=== PATIENT | female | born 1970 | race Asian ===

== ENCOUNTER 2020-07-09 09:24 | Emergency (ER) | payer MEDICARE, OTHER, SELFPAY ==
[2020-07-09 09:46] VITALS: BP 153/85; PULSE 68; RESP 18; TEMP 36; O2SAT 100; BMI 23.8
[2020-07-09] MEDS: Fluorescein Sodium STRIP 1 STRIP EYE-BOTH (10:12)
[2020-07-09] MEDS: Tetracaine HCl/PF 0.5% Oph Sol 4 ML DROPS 3 DROP EYE-LEFT (10:12)
--- NOTE | 2020-07-09 10:19 | ED_ITS ---
HPI - Eye Problem General Chief complaint: Eye Problems <NENA Owusu - Last Filed: 07/09/20 10:32> Stated complaint: FB in eye <NENA Owusu Last Filed: 07/09/20 10:32> Time Seen by Provider: 07/09/20 09:42 <NENA Owusu Last Filed: 07/09/20 10:32> Source: patient <NENA Owusu Last Filed: 07/09/20 10:32> Mode of arrival: ambulatory <NENA Owusu Last Filed: 07/09/20 10:32> Limitations: no limitations <NENA Owusu Last Filed: 07/09/20 10:32> History of Present Illness HPI Narrative: 49 y/o female presenting with right eye watering, pain and irritation that started yesterday when she was outside she something blew into her eye. She had immediate discomfort and watering. She tried flushing her eye last night but has continued discomfort. She does not wear contact or lenses. She denies vision c hanges. <NENA Owusu - Last Filed: 07/09/20 10:32> MD chief complaint: eye pain, eye redness and foreign body <NENA Owusu - Last Filed: 07/09/20 10:32> Onset (ago): day(s) <NENA Owusu - Last Filed: 07/09/20 10:32> Onset description: sudden <NENA Owusu Last Filed: 07/09/20 10:32> Duration: constant <NENA Owusu Last Filed: 07/09/20 10:32> Location: right eye <NENA Owusu Last Filed: 07/09/20 10:32> Eye Symptoms: redness, pain and foreign body sensation <NENA Owusu Last Filed: 07/09/20 10:32> Place: street/outdoors <NENA Owusu Last Filed: 07/09/20 10:32> Mechanism: none <NENA Owusu Last Filed: 07/09/20 10:32> Severity: moderate <NENA Owusu - Last Filed: 07/09/20 10:32> If Pain, Quality: aching <NENA Owusu - Last Filed: 07/09/20 10:32> Associated symptoms: none <NENA Owusu - Last Filed: 07/09/20 10:32> Treatments Prior to Arrival: irrigated eye <NENA Owusu - Last Filed: 07/09/20 10:32> Related Data Patient tetanus UTD: Yes <NENA Owusu - Last Filed: 07/09/20 10:32> Home medications: Previous Rx's Medication Instructions Recorded gentamicin 1 drp OPHTHALMIC-RIGHT Q4H #5 ml 07/09/20 <NENA Owusu - Last Filed: 07/09/20 10:32> Allergies/adverse reactions: Allergies Allergy/AdvReac Type Severity Reaction Status Date / Time No Known Allergies Allergy Verified 07/09/20 09:50 <NENA Owusu - Last Filed: 07/09/20 10:32> Review of Systems Review of Systems: Constitutional: No Fever, No Chills ENT/Mouth: No sore throat, No Rhinorrhea, No Swallowing Difficulty Eyes: + Eye Pain, No Swelling, + Redness Skin: No Skin Lesions, No rash Neuro: No Dizziness, No Headache Heme/Lymph: No Bruising <NENA Owusu - Last Filed: 07/09/20 10:32> [facility] Past Medical History Attestation statement: The following information was validated with the patient. <NENA Owusu - Last Filed: 07/09/20 10:32> Medical History: Medical History Arthritis <NENA Owusu - Last Filed: 07/09/20 10:32> Surgical History: Surgical History (Updated 07/09/20 @ 09:49 by Naz Thomas) H/O neck surgery <NENA Owusu - Last Filed: 07/09/20 10:32> Social History Social History: Social History Advance Directives: No Advance Directives Information Provided: No <NENA Owusu - Last Filed: 07/09/20 10:32> Physical Exam Vital Signs: Vital Signs: Last Vital Signs Temp 96.8 F 07/09/20 09:46 Pulse 68 07/09/20 09:46 Resp 18 07/09/20 09:46 BP 153/85 H 07/09/20 09:46 Pulse Ox 100 07/09/20 09:46 Body Mass Index 23.8 <NENA Owusu Last Filed: 07/09/20 10:32> Vital Signs: Last Vital Signs Temp 96.8 F 07/09/20 09:46 Pulse 68 07/09/20 09:46 Resp 18 07/09/20 09:46 BP 153/85 H 07/09/20 09:46 Pulse Ox 100 07/09/20 09:46 Body Mass Index 23.8 <Troy Gillespie MD - Last Filed: 07/23/20 14:30> Const: General: cooperative, healthy appearing and no acute distress <NENA Owusu Last Filed: 07/09/20 10:32> Nutritional Appearance: average body habitus <NENA Owusu - Last Filed: 07/09/20 10:32> Limitations: no limitations <NENA Owusu Last Filed: 07/09/20 10:32> HENMT: Head: Yes normal to inspection, Yes normocephalic and Yes atraumatic <NENA Owusu Last Filed: 07/09/20 10:32> Ears: hearing grossly normal bilaterally and external ears normal <NENA Owusu Last Filed: 07/09/20 10:32> General nose exam: Normal external nose present <NENA Owusu Last Filed: 07/09/20 10:32> Face and sinus: Yes normal facial exam <NENA Owusu Last Filed: 07/09/20 10:32> Eyes: Periorbital: periorbital findings normal <NENA Owusu Last Filed: 07/09/20 10:32> Eyelids: Yes eyelids normal <NENA Owusu Last Filed: 07/09/20 10:32> Conjunctivae: conjunctivae normal and conjunctival abnormal <NENA Owusu Last Filed: 07/09/20 10:32> Sclerae: scleral abnormal right scleral injection <NENA Owusu Last Filed: 07/09/20 10:32> Corneas: corneas abnormal on the right fluorescein used and abrasion linear and at the following clock position (9 o'clock) and fluorescein used <NENA Owusu - Last Filed: 07/09/20 10:32> Pupils: Equal, round and reactive pupils present <NENA Owusu Last Filed: 07/09/20 10:32> EOM: EOMs intact bilaterally <NENA Owusu Last Filed: 07/09/20 10:32> Neck: Neck: Yes normal visual inspection <NENA Owusu Last Filed: 07/09/20 10:32> Chest: Chest palpation & inspection: normal inspection of the chest <NENA Owusu Last Filed: 07/09/20 10:32> Resp: Effort & Inspection: normal respiratory effort and able to speak in complete sentences <NENA Owusu Last Filed: 07/09/20 10:32> Skin: General skin exam: no rashes or lesions noted <NENA Owusu Last Filed: 07/09/20 10:32> Neuro: General: gait normal and moves all extremities <NENA Owusu Last Filed: 07/09/20 10:32> Cranial nerves: Yes CN's II-XII intact bilaterally and Yes Equal, round and reactive pupils present <NENA Owusu Last Filed: 07/09/20 10:32> Extrem: General: Yes normal to inspection <NENA Owusu Last Filed: 07/09/20 10:32> Psych: Appearance: grossly normal and well kempt <NENA Owusu Last Filed: 07/09/20 10:32> Mental Status: mental status grossly normal <NENA Owusu Last Filed: 07/09/20 10:32> Course Course Course Narrative: 49 y/o female presenting with eye pain and possible foriegn body. Examination reveals no foreign body but there is a small corneal abrasion at the 9 o'clock position. She has no vision changes. She feels significantly better after tetracaine and irrigation. Will prescribe topical antibiotic eye drops and have her follow up with optho. All questions were answered and patient is stable for discharge. <NENA Owusu - Last Filed: 07/09/20 10:32> I have reviewed the chart <Troy Gillespie MD - Last Filed: 07/23/20 14:30> MDM - Eye Problem Differential Diagnosis Differential diagnosis: Likely corneal abrasion, conjunctivitis, acute iritis, hyphema, periorbital cellulitis, subconjunctival hemorrhage and corneal ulcer <NENA Owusu - Last Filed: 07/09/20 10:32> Critical Care Time Critical Care Time Critical Care Time: No <NENA Owusu - Last Filed: 07/09/20 10:32> Discharge Plan Discharge Clinical Impression: Corneal abrasion <NENA Owusu Last Filed: 07/09/20 10:32> Patient Disposition: Home, Self-Care <NENA Owusu - Last Filed: 07/09/20 10:32> Instructions: Corneal Abrasion (ED) <NENA Owusu - Last Filed: 07/09/20 10:32> Additional Instructions: Use the prescribed eye drops as directed for 1 week. Take Tylenol and/or Motrin as needed for discomfort. Follow up with the eye doctor if no improvement in 48 hours. If you have worsening pain or develop vision changes or any other concerning symptom come back to the ER for further evaluation. <NENA Owusu - Last Filed: 07/09/20 10:32> Prescriptions: New gentamicin 0.3 % drops 1 drp ophthalmic-Right Q4H Qty: 5 RF: 0 <NENA Owusu - Last Filed: 07/09/20 10:32> Referrals: Solomon Toscano [Physician] - 2 days <NENA Owusu - Last Filed: 07/09/20 10:32> Interventions: ED Discharge Assessment Last Done: 07/09/20 10:44 <NENA Owusu Last Filed: 07/09/20 10:32> Discharge Date/Time: 07/09/20 10:46 <NENA Owusu - Last Filed: 07/09/20 10:32>
== END 2020-07-09 10:46 | disposition home or self-care (01) ==
PROVIDERS: Emergency Provider Emergency Medicine; PCP Internal Medicine
DX: S05.01XA Injury of conjunctiva and corneal abrasion without foreign body, right eye, initial encounter (principal); X58.XXXA Exposure to other specified factors, initial encounter; Y93.01 Activity, walking, marching and hiking; Y92.480 Sidewalk as the place of occurrence of the external cause; Y99.9 Unspecified external cause status
CPT/HCPCS: 99283

== ENCOUNTER 2021-04-13 07:38 | Emergency (ER) | payer OTHER, MEDICARE, SELFPAY ==
[2021-04-13 08:06] VITALS: BP 142/92; PULSE 74; RESP 18; TEMP 36.1; O2SAT 99; BMI 23.9
[2021-04-13 08:26] LABS: COVID-19 Test Positive (Negative)
--- NOTE | 2021-04-13 09:37 | ED.URI ---
HPI - URI/Sore Throat General Chief Complaint: Upper Respiratory Symptoms Stated Complaint: Cough Time Seen by Provider: 04/13/21 09:12 Source: patient Mode of arrival: ambulatory Limitations: no limitations History of Present Illness HPI Narrative: 50-year-old female reports that she is vaccinated with the COVID vaccine just received her booster 5 days ago presenting to the ED with COVID like symptoms which include resolved fever, body aches, sore throat, nausea and vomiting for the past 5 days. Reports that her granddaughter tested positive a few days ago. Denies recent travel or any other sick contacts. Reports that she is able to still drink water and fluids she is mainly vomiting solids. She denies any other symptoms complaints or concerns at this time. MD elicited complaint: fever, cough and sore throat Onset (ago): day(s) (5) Consistency: constant and progressively worsening Severity: mild Description of mucous: clear Able to tolerate fluids by mouth: Yes Exacerbating factors: swallowing Relieving factors: nothing Context: sick contacts (Granddaughter tested positive for COVID a few days ago) Associated symptoms: fever, chills, myalgias, sore throat, cough, nausea, vomiting and other Treatments prior to arrival: none Related Data Previous Rx's Medication Instructions Recorded gentamicin 0.3 % eye drops 1 drp OPHTHALMIC-RIGHT Q4H #5 ml 07/09/20 acetaminophen 500 mg tablet 1,000 mg PO QID PRN #14 tab 04/13/21 (Tylenol Extra Strength) azithromycin 250 mg tablet See Rx Instructions .ROUTE 04/13/21 .COMPLEX #6 tab codeine 10 mg-guaifenesin 100 mg/5 5 ml PO Q6H PRN #120 ml 04/13/21 mL oral liquid (Guaifenesin AC) ibuprofen 800 mg tablet 800 mg PO Q8H PRN #14 tab 04/13/21 ondansetron 4 mg disintegrating 4 mg PO Q8H PRN #14 tab 04/13/21 tablet Allergies Allergy/AdvReac Type Severity Reaction Status Date / Time No Known Allergies Allergy Verified 07/09/20 09:50 Review of Systems Review of Systems: Constitutional : Positive fever/chills/fatigue/malaise, No Weight loss, No Night Sweats ENT/Mouth : Positive sore throat, No Hearing loss, No Ear Pain, No Nasal Congestion, No Sinus Pain, No Hoarseness No Rhinorrhea, No Swallowing Difficulty Eyes: No Eye Pain, No Swelling, No Redness, No Foreign Body, No Discharge, No Vision Changes Cardiovascular : No Chest Pain, No SOB, No Dyspnea on Exertion, No Orthopnea, No Edema, No Palpitations Respiratory : Positive dry cough, No Sputum, No Wheezing, No Smoke Exposure, No Dyspnea Gastrointestinal : Positive nausea and vomiting, No Diarrhea, No Constipation, No abdominal Pain, No Hematochezia, No Melena Genitourinary : no irregular bleeding, No Dysuria, No Urinary Frequency, No Hematuria, No Urinary Incontinence, No Urgency, No Flank Pain, No Urinary Flow Changes, No Hesitancy Musculoskeletal : No joint pain, No Myalgias, No Joint Swelling Skin : No Skin Lesions, No rash Neuro : No Weakness, No Numbness, No Paresthesias, No Loss of Consciousness, No Dizziness, No Headache Psych : No Anxiety/Panic, No Depression, No SI/HI/AH/VH, No Social Issues, Heme/Lymph: No Bruising, No Bleeding,No Lymphadenopathy Endocrine : No Polyuria, No Polydipsia, No Temperature Intolerance Yes all other systems are reviewed and are negative [facility] Past Medical History Attestation statement: The following information was validated with the patient. Medical History Arthritis Surgical History H/O neck surgery Social History Social History Advance Directives: No Advance Directives Information Provided: Yes Patient : No Physical Exam Vital Signs: Vital Signs: Last Vital Signs Temp 97.0 F 04/13/21 08:06 Pulse 74 04/13/21 08:06 Resp 18 04/13/21 08:06 BP 142/92 H 04/13/21 08:06 Pulse Ox 99 04/13/21 08:06 BMI result Body Mass Index 23.9 vital signs have been reviewed as normal and appeared to be correct. Blood pressure normal. Heart rate normal. Respiration rate normal. Temperature normal. Oxygen saturation normal. Appearance: Alert. Oriented X3. No acute distress. Head: Normal external exam. Normocephalic. Atraumatic. Eyes: PERRLA. EOMI. Conjunctiva and sclera normal. Eyelids normal. ENT: EAC normal. TM's Normal. Pharynx normal. Uvula midline. Moist mucous membranes. No trismus noted. No drooling noted. No muffled voice noted. Neck: Normal inspection. Neck supple. FROM. No adenopathy. Thyroid Normal. No meningeal signs. No neck mass noted. CVS: Normal heart rate and rhythm. Heart sound normal. Pulses normal throughout. No murmurs/rales/gallops. Respiratory: No respiratory distress. Painless inspiration. Breath sounds normal. No wheezes/rales/rhonchi noted. Chest nontender. No accessory muscle usage noted or decreased air movement noted. Abdomen: Soft and nontender. Bowel sounds normal in all 4 quadrants. No distention noted. No organomegaly noted. No visible injury noted. Back: No CVA tenderness. Full range of motion noted. No rashes/lesion/induration/fluctuance or signs of infection noted. Skin: Skin warm and dry. Normal skin color. Normal skin turgor. No rashes/lesions/lacerations noted. Extremities: No lower extremity edema. Extremities exhibit normal range of motion. Extremities nontender. Neuro: Oriented X 3. No motor deficit. No sensory deficit. Reflexes normal. Normal steady gait. No focal neuro deficits noted. Vascular: + radial pulses/+ 2 distal pedal pulses/+2 dorsalis pedis b/l. Normal cap refill. No cyanosis noted to upper extremity nails and lower extremity toes nails. Course Course Course Narrative: Patient positive for COVID. Vital signs remained stable within normal limits. Lungs clear to auscultation. CV RRR. Abdomen is soft nontender. Will explain that he needs to follow CDC guidelines for quarantine/restrictions. Insert return if any new or worsening symptoms follow-up with primary care provider. Patient understands agrees this plan. MDM - URI/Sore Throat Medical Records Attestation: I reviewed the patient's medical records. Lab Data Attestation: I reviewed the patient's lab results. Labs: Lab Results 04/13/21 Range/Units 08:10 COVID-19 ([facility]) Positive A (Negative) COVID-19 Clin Com See Note Discharge Plan Discharge Clinical Impression: COVID-19 Patient Disposition: Home, Self-Care Instructions: COVID-19 (Coronavirus Disease 2019) (ED) Additional Instructions: Please follow CDC guidelines for COVID 19 restrictions/quarantine Prescriptions: New azithromycin 250 mg tablet See Rx Instructions .ROUTE .COMPLEX Qty: 6 RF: 0 ibuprofen 800 mg tablet 800 mg PO Q8H PRN (Reason: pain) Qty: 14 RF: 0 acetaminophen [Tylenol Extra Strength] 500 mg tablet 1,000 mg PO QID PRN (Reason: fever or pain) Qty: 14 RF: 0 codeine-guaifenesin [Guaifenesin AC] 10-100 mg/5 mL liquid 5 ml PO Q6H PRN (Reason: cold symptoms) Qty: 120 RF: 0 ondansetron 4 mg tablet,disintegrating 4 mg PO Q8H PRN (Reason: nausea and vomiting) Qty: 14 RF: 0 No Action gentamicin 0.3 % drops 1 drp ophthalmic-Right Q4H Qty: 5 RF: 0 Referrals: Lien Hess MD [Primary Care Provider] - 2 days Stand Alone Forms: Work/School Release
== END 2021-04-13 09:57 | disposition home or self-care (01) ==
PROVIDERS: Emergency Provider Internal Medicine; PCP Internal Medicine
DX: U07.1 COVID-19 (principal)
CPT/HCPCS: 87635; 99283

== ENCOUNTER 2023-08-12 16:59 | Emergency (ER) | payer MEDICARE, MEDICAID, SELFPAY ==
--- NOTE | 2023-08-12 | ECG_ITS ---
Test Reason : CHEST PAIN Blood Pressure : / mmHG Vent. Rate : 057 BPM Atrial Rate : 057 BPM P-R Int : 120 ms QRS Dur : 090 ms QT Int : 430 ms P-R-T Axes : 059 049 033 degrees QTc Int : 418 ms Sinus bradycardia with sinus arrhythmia Otherwise normal ECG When compared with ECG of 26-JUL-2019 05:38, Non-specific change in ST segment in Lateral leads T wave inversion less evident in Inferior leads T wave inversion no longer evident in Anterolateral leads Referred By: Generic ED Physician Electronically Signed By:Roc Escoto
--- NOTE | ~2023-08-12 | XR_ITS ---
EXAMINATION: XR CHEST CLINICAL INFORMATION: Chest pain. COMPARISON: Chest radiograph 07/26/2019. TECHNIQUE: 2 views of the chest were obtained. FINDINGS: Stable cardiomediastinal silhouette. No focal airspace opacities, pleural effusion or pneumothorax. No evidence of pulmonary edema. Thoracic spondylosis. No acute osseous findings. Partially seen cervical spinal hardware. XR/XR chest 2V IMPRESSION: No acute cardiopulmonary findings.
--- NOTE | ~2023-08-12 | XR_ITS ---
EXAMINATION: PELVIS AND LEFT HIP, LEFT KNEE CLINICAL INFORMATION: Pain COMPARISON: CT abdomen pelvis 07/12/2019 TECHNIQUE: Single view pelvis with 2 additional views left hip, 4 views left knee FINDINGS: The pelvis and hips appear normal. No fractures or bony destructive lesions. No significant bone, joint or soft tissue abnormality is seen involving the knee aside from the presence of a possible tiny joint effusion. XR/XR hip LT w PEL1V IMPRESSION: No acute abnormality.
--- NOTE | ~2023-08-12 | XR_ITS ---
EXAMINATION: PELVIS AND LEFT HIP, LEFT KNEE CLINICAL INFORMATION: Pain COMPARISON: CT abdomen pelvis 07/12/2019 TECHNIQUE: Single view pelvis with 2 additional views left hip, 4 views left knee FINDINGS: The pelvis and hips appear normal. No fractures or bony destructive lesions. No significant bone, joint or soft tissue abnormality is seen involving the knee aside from the presence of a possible tiny joint effusion. XR/XR knee LT 3V IMPRESSION: No acute abnormality.
[2023-08-12 17:05] VITALS: BP 170/90; PULSE 60; O2SAT 100
[2023-08-12 17:18] LABS: MANUAL DIFF FLAG NO
[2023-08-12 17:22] LABS: Basophils Percent Auto 0.6 % (0-2); Eosinophils Absolute Auto 0.1 X10*3/uL (0.0-0.4); Eosinophils Percent Auto 1.7 % (0-4); Hematocrit 40.9 % (37.0-47.0); Hemoglobin 13.7 g/dl (12.0-16.0); Imm Gran Abs Auto 0.01 X10*3/uL (0.00-0.03); Imm Gran Pct Auto 0.2 % (0.0-0.4); Lymphocytes Absolute Auto 2.6 X10*3/uL (1.2-4.9); Lymphocytes Percent Auto 49.8 % (20-40); Mean Corpuscular HGB Conc 33.5 g/dl (31.0-35.0); Mean Corpuscular Hemoglobin 26.7 pg (27.0-33.0); Mean Corpuscular Volume 79.6 fL (80.0-98.0); Monocytes Absolute Auto 0.5 X10*3/uL (0.1-1.2); Monocytes Percent Auto 9.2 % (2-11); Neutrophils Percent Auto 38.5 % (45-73); Platelet Count 247 X10*3/uL (160-400); Red Blood Count 5.14 X10*6/uL (4.20-5.50); Red Cell Distribution Width 14.4 % (11.0-16.0); White Blood Count 5.2 X10*3/uL (4.8-10.8)
[2023-08-12 17:29] VITALS: BP 169/76; PULSE 59; RESP 20; TEMP 36.4; O2SAT 98; BMI 24.5
[2023-08-12 17:29] LABS: INTERNATIONAL NORM RATIO 0.9 (0.9-1.1); Prothrombin Time 10.9 SEC (11.1-13.3)
--- NOTE | 2023-08-12 17:35 | ED_ITS ---
HPI - Chest Pain General Chief Complaint: Chest Pain Stated Complaint: CHEST PAIN Time Seen by Provider: 08/12/23 21:10 Source: patient Mode of arrival: ambulatory History of Present Illness HPI narrative: 52-year-old female who has had 2 weeks of left knee pain and left hip pain that started after she was going down some stairs and she states that her knee gave out and that she has had some difficulty with walking, the pain is primarily within the left knee, she went to follow-up at [facility] today and then began developing left-sided chest pain with radiation into the left neck, denies dizziness/fever/chills/shortness of breath and has no past medical history of diabetes or high blood pressure and is not on any prescribed medications. Related Data Previous Rx's ?Medication ?Instructions ?Recorded gentamicin 0.3 % eye drops 1 drp ophthalmic-Right Q4H #5 mL 07/09/20 acetaminophen 500 mg tablet 1,000 mg (2 x 500 mg) PO QID PRN 04/13/21 (Tylenol Extra Strength) fever or pain #14 tabs azithromycin 250 mg tablet See Rx Instructions PO .COMPLEX #6 04/13/21 tabs codeine 10 mg-guaifenesin 100 mg/5 5 ml PO Q6H PRN cold symptoms #120 04/13/21 mL oral liquid (Guaifenesin AC) mL ibuprofen 800 mg tablet 800 mg PO Q8H PRN pain #14 tabs 04/13/21 ondansetron 4 mg disintegrating 4 mg PO Q8H PRN nausea and 04/13/21 tablet vomiting #14 tabs Allergies Allergy/AdvReac Type Severity Reaction Status Date / Time No Known Allergies Allergy Verified 08/12/23 17:32 Review of Systems 2 Review of Systems: Pertinent positives and negatives as stated in HPI [facility] Past Medical History Source: nursing notes reviewed Medical History Arthritis Surgical History H/O neck surgery Social History Social History Advance Directives: No Advance Directives Information Provided: No Do you have a plan to hurt others: No Plan Physical Exam 2 Vital Signs: Vital Signs: Last Vital Signs Temp 97.9 F 05/09/24 01:15 Pulse 55 08/13/23 01:15 Resp 16 08/13/23 01:15 BP 144/87 H 08/13/23 01:15 Pulse Ox 99 08/13/23 01:15 O2 Del Method Room Air 08/13/23 01:15 BMI result Body Mass Index 24.5 VITAL SIGNS: Reviewed. GENERAL: Well developed, well nourished, in no acute distress. HEAD: Normocephalic/atraumatic EYES: PERRLA, EOMI EARS: Ext canals without abnormality NOSE: Nares patent bilateral OROPHARYNX: no oral lesions noted, posterior pharynx clear NECK: Supple, no adenopathy LUNGS: Normal breath sounds. No adventitious sounds or accessory muscle use. SpO2<99> CARDIOVASCULAR: Regular rate and rhythm without noted murmurs ABDOMEN: Soft, non-tender, non-distended with bowel sounds. PELVIS: Stable, tenderness to palpation at the left hip BACK: No midline vertebral tenderness to palpation or step-offs noted. MUSCULOSKELETAL: No tenderness, deformities, or effusions noted on gross inspection. EXTREMITIES: No cyanosis, clubbing or edema. LEFT KNEE: Significant discomfort on manipulation of the patella, no obvious deformity or effusion appreciated, pain also on palpation of popliteal fossa as well as manipulation of the left hip SKIN: Inspection of the skin reveals no rashes NEUROLOGIC: Alert and oriented x 4. Strength and sensation to light touch were grossly intact x 4. Course Course Course Narrative: This is a Rapid Medical Examination (RME) performed by Renee Currie PA-C in triage. Full HPI, ROS, assessment and treatment plan per primary provider in the Main ED. 52 yo female w/ pmhx of MDD here via EMS for eval of substernal chest pain radiating to left chest and left jaw that began prior to arrival in ED. Pain began while she was being evaluated at [facility] for chronic knee pain. EMS was called. Pain is minimal at this time and has almost completely resolved. Denies similar episodes in the past. Denies cough, shortness of breath, nausea vomiting diarrhea, headache, blurry vision. No recent travel or long car rides. Not on AC. No cardiac history. well appearing. not diaphoretic. rr. lungs cta b/l. Plan: labs, trop, ekg, cxr ordered. Medical Decision Making Medical Decision Making [facility] Narrative: 52-year-old female with history and clinical presentation, DDX: Patient has minimal risk factors for large vessel dissection/occlusion, low clinical suspicion for extremity DVT or PE, suspect possible meniscal injury/sciatica, unsure source of chest pain but possibility of musculoskeletal/anxiety I reviewed all investigations and hematologic indices are negative for leukocytosis/anemia/thrombocytopenia. INR is within normal limits. Chemistry indices negative for CUCA or liver enzyme derangements, there is noted trace elevation of sodium, otherwise I sensitivity troponin is undetectable and there are no acute changes on EKG. Chest x-ray negative for infiltrate or venous congestion otherwise my interpretation is in agreement with radiology's impression. X-ray of knee and hip/pelvis negative for evidence of acute fractures or dislocations. Urinalysis is negative for UTI but there is noted hematuria that has increased since urinalysis in 2019. Provided patient with a an Alvaro wrap to the left knee, also discussed with her the fact that she needed to follow-up with urology as well as her primary care doctor for the left flank pain with hematuria. Patient declined translator/interpreter services. Differential Diagnosis Differential Diagnoses: The differential diagnosis associated with the presentation includes Please see the discussion above Admission/Observation Consideration of admission/observation: Escalation of care including admission/observation considered Please see the discussion above Lab Data [facility] Lab Attestation statement: I reviewed the patient's lab results. Please see the discussion above 08/12/23 17:13 08/12/23 17:13 Labs: Lab Results 08/12/23 08/12/23 Range/Units 17:13 22:18 WBC 5.2 (4.8-10.8) X10*3/uL RBC 5.14 (4.20-5.50) X10*6/uL Hgb 13.7 (12.0-16.0) g/dl Hct 40.9 (37.0-47.0) % MCV 79.6 L (80.0-98.0) fL MCH 26.7 L (27.0-33.0) pg MCHC 33.5 (31.0-35.0) g/dl RDW 14.4 (11.0-16.0) % Plt Count 247 (160-400) X10*3/uL MPV 10.0 (9.4-12.3) fL Immature Gran % (Auto) 0.2 (0.0-0.4) % Neut % (Auto) 38.5 L (45-73) % Lymph % (Auto) 49.8 H (20-40) % Davidson % (Auto) 9.2 (2-11) % Eos % (Auto) 1.7 (0-4) % Baso % (Auto) 0.6 (0-2) % Lymph # (Auto) 2.6 (1.2-4.9) X10*3/uL Davidson # (Auto) 0.5 (0.1-1.2) X10*3/uL Eos # (Auto) 0.1 (0.0-0.4) X10*3/uL Baso # (Auto) 0.0 (0.0-0.2) X10*3/uL Abs Immat Gran (auto) 0.01 (0.00-0.03) X10*3/uL Absolute Neuts (auto) 2.0 (2.0-8.3) x10*3/uL Absolute Nucleated RBC 0.000 (0.0-0.012) X10*3/uL Nucleated RBC % (auto) 0.0 (0.0-0.2) /100WBC PT 10.9 L (11.1-13.3) SEC INR 0.9 (0.9-1.1) Sodium 147 H (135-145) mmol/L Potassium 4.2 (3.3-5.1) mmol/L Chloride 108 (96-108) mmol/L Carbon Dioxide 25 (22-29) mmol/L Anion Gap 18 (12-20) BUN 14 (9-16) mg/dL Creatinine 0.73 (0.5-1.4) mg/dL Estim Creat Clear Calc 77.4 Estimated GFR > 60 Random Glucose 101 (60-115) mg/dL Calcium 10.5 H (8.4-10.2) mg/dL Magnesium 2.2 (1.6-2.6) mg/dL Total Bilirubin 0.5 (0.0-1.0) mg/dL AST 27 (5-31) U/L ALT 20 (0-31) U/L Alkaline Phosphatase 63 (39-117) U/L Troponin I High Sens < 2.7 (<3.5-17.0) ng/L Total Protein 7.7 (6.5-8.0) g/dL Albumin 4.6 (3.5-5.0) g/dL Urine Color Yellow Urine Appearance Clear Urine pH 6.5 (5.0-9.0) Ur Specific [place] 1.015 (1.005-1.025) Urine Protein Negative (Neg-Trace) mg/dL Urine Glucose (UA) Negative (Negative) mg/dL Urine Ketones Negative (Negative) mg/dL Urine Blood Small (1+) H (Negative) Urine Nitrite Negative (Negative) Ur Leukocyte Esterase Negative (Negative) Urine RBC 11-20 H (0-2) /HPF Urine WBC 0-5 (0-5) /HPF Ur Squamous Epith Cells 0-2 (0-2) /HPF Urine Bacteria None Seen (None Seen) Hyaline Casts 0-2 (0-2) /LPF Independent Interpretation I performed an independent interpretation of an: EKG Interpretation: Sinus bradycardia, HR-57, no STEMI, AK/QRS/QTC is within normal limits. Radiology Impression Discussion of test interpretation with radiology: I have reviewed the radiologist's reading. Radiologist Impression: Please see the discussion above External Record Review External record reviewed: Outpatient record and Prior outpatient labs Critical Care Time Critical Care Time Critical Care Time: Yes Total Critical Care Time: 30 Attestation: I personally attest to this time spent taking care of the patient. Discharge Plan Discharge Clinical Impression: Knee pain, left, Hematuria, Left flank pain Patient Disposition: Home, Self-Care Instructions: How to Use an Elastic Bandage (ED), Hematuria (ED), Knee Pain (ED), Flank Pain (ED) Additional Instructions: 1. Tylenol 1000 mg, orally, every 6 hours as needed for pain control. Do not exceed 4000 mg within 24 hours. 2. Ibuprofen 400 mg, orally with milk or food, every 6 hours as needed for pain control. 3. Recommend calling Urology office tomorrow morning to set up an appointment for re-evaluation and further outpatient management for the blood in the urine. 4. Please follow-up with your primary care doctor in the next 1-2 days for re- evaluation of your left knee. Return to the ER for any worsening symptoms. Prescriptions: No Action gentamicin 0.3 % drops 1 drp ophthalmic-Right Q4H Qty: 5 0RF azithromycin 250 mg tablet See Rx Instructions .ROUTE .COMPLEX Qty: 6 0RF Rx Instructions: take 500 mg today (day 1), then 250 mg for 4 days (days 2-5) ibuprofen 800 mg tablet 800 mg PO Q8H PRN (Reason: pain) Qty: 14 0RF acetaminophen [Tylenol Extra Strength] 500 mg tablet 1,000 mg PO QID PRN (Reason: fever or pain) Qty: 14 0RF codeine-guaifenesin [Guaifenesin AC] 10-100 mg/5 mL liquid 5 ml PO Q6H PRN (Reason: cold symptoms) Qty: 120 0RF ondansetron 4 mg tablet,disintegrating 4 mg PO Q8H PRN (Reason: nausea and vomiting) Qty: 14 0RF Referrals: León Seo MD [Physician] - Lien Hess MD [Primary Care Provider] - Interventions: ED Discharge Assessment Last Done: 08/13/23 01:15 Discharge Date/Time: 08/13/23 01:24 Print Language: Indonesian
[2023-08-12 17:41] LABS: Alanine Aminotransferase 20 U/L (0-31); Albumin Level 4.6 g/dL (3.5-5.0); Alkaline Phosphatase 63 U/L (39-117); Anion Gap 18 (12-20); Aspartate Amino Transferase 27 U/L (5-31); Bilirubin Total 0.5 mg/dL (0.0-1.0); Blood Urea Nitrogen 14 mg/dL (9-16); Calcium 10.5 mg/dL (8.4-10.2); Carbon Dioxide 25 mmol/L (22-29); Chloride 108 mmol/L (96-108); Creatinine Clr Calc Pharmacy 77.4; Estimated Glomerular Filt Rate > 60; Glucose Random 101 mg/dL (60-115); Magnesium 2.2 mg/dL (1.6-2.6); Potassium 4.2 mmol/L (3.3-5.1); Sodium 147 mmol/L (135-145); Total Protein 7.7 g/dL (6.5-8.0)
[2023-08-12 17:48] LABS: Troponin-I High Sensitivity < 2.7 ng/L (<3.5-17.0)
[2023-08-12 21:37] VITALS: BP 146/96; PULSE 61; RESP 18; TEMP 36.6; O2SAT 99
[2023-08-12 22:26] LABS: Appearance Urine Clear; Color Urine Yellow; Glucose Urine UA Negative (Negative); Leukocyte Esterase Urine Negative (Negative); Nitrite Urine Negative (Negative); PH 6.5 (5.0-9.0); Specific Gravity - Urine 1.015 (1.005-1.025); UMIC TRIGGER UACC YES; Urine Blood Small (1+) (Negative); Urine Ketones Negative (Negative); Urine Protein Negative (Neg-Trace)
[2023-08-12 22:34] LABS: Bacteria Urine None Seen (None Seen); Hyaline Casts Urine 0-2 /LPF (0-2); Squamous Epithelial Cell Urine 0-2 /HPF (0-2); WBC Urine 0-5 /HPF (0-5)
[2023-08-13 00:09] VITALS: BP 136/79; PULSE 72; RESP 16; TEMP 36.5; O2SAT 97
[2023-08-13 01:15] VITALS: BP 144/87; PULSE 55; RESP 16; TEMP 36.6; O2SAT 99
== END 2023-08-13 01:24 | disposition home or self-care (01) ==
PROVIDERS: Emergency Provider Student in an Organized Health Care Education/Training Program; PCP Internal Medicine
DX: S29.9XXA Unspecified injury of thorax, initial encounter (principal); R07.89 Other chest pain; M25.562 Pain in left knee; M25.552 Pain in left hip; I49.9 Cardiac arrhythmia, unspecified; R00.1 Bradycardia, unspecified; R10.9 Unspecified abdominal pain; W10.9XXA Fall (on) (from) unspecified stairs and steps, initial encounter; Y93.9 Activity, unspecified; Y92.9 Unspecified place or not applicable; Y99.8 Other external cause status; Z79.899 Other long term (current) drug therapy
CPT/HCPCS: 36415; 71046; 73502; 73562; 80053; 81001; 83735; 84484; 85025; 85610; 93005; 99283; 99285

== ENCOUNTER → 2023-08-12 17:04 | Outpatient (BNV) | payer MEDICARE, MEDICAID, SELFPAY | PROVIDERS: Emergency Provider Student in an Organized Health Care Education/Training Program; PCP Internal Medicine; Visit Provider Internal Medicine Cardiovascular Disease | DX: R07.9 Chest pain, unspecified (principal) | CPT/HCPCS: 93010 ==

== ENCOUNTER 2023-10-05 09:06 | Outpatient (AMB) | payer MEDICARE, MEDICAID, SELFPAY ==
--- NOTE | 2023-10-05 09:08 | MHC.OFFVIS ---
Intake Visit Reasons: Hematuria Intake Note: New Patient presents today for initial visit to establish treatment for : Hematuria Urology Medications: none Allergies to Antibiotic: none Blood Thinner: none Smoker: never [employer] Worker Required: No Accompanied by: Self / Same As Patient Allergies No Known Allergies Allergy (Verified 10/05/23 09:32) Medication List - Last Reconciled 10/05/23 by KAMERON Miller acetaminophen (Tylenol Extra Strength) 1,000 mg (2 x 500 mg) PO QID PRN ibuprofen 800 mg PO Q8H PRN HPI Comments Details: Sameera is a pleasant 52-year-old female patient of Dr. Hess. She has a past medical history arthritis. She presents to the office today as a new patient for microscopic hematuria. She reports following up with her pcp for her annual visit at which time her urine noted microscopic hematuria recommendations were made for urology referral for further assessment evaluation. In discussion with the patient today she reports to be doing and feeling well. She reports noting episodes of urinary frequency with increased p.o. intake otherwise she denies any bothersome urinary issues or concerns. She denies urinary urgency, incontinence, nocturia, hematuria, dysuria, foul smelling urine, changes to urinary stream, flank pain, fever, and or chills. She is happy with her current voiding parameters. She denies any history of nicotine dependence and or workplace chemical exposure. In office urinalysis results reviewed with the patient today trace microscopic hematuria noted. Discussed at length potential causes of microscopic hematuria. I discussed reasons for blood in the urine may include but are not limited to kidney stones, cancer in the urinary tract, kidney stone disease or inflammatory conditions of the urinary tract. I have discussed workup to include cystoscopy evaluation. She otherwise offers no other issues or concerns at this time. [facility] Medical History Arthritis Surgical History H/O neck surgery Review of Systems Const All systems reviewed & are unremarkable except as noted in HPI and below Physical Exam Const General: cooperative, healthy appearing, comfortable, no acute distress, well developed, alert and awake Orientation/consciousness: patient oriented x3 Limitations: no limitations HEENT Head: Yes normal to inspection, Yes normocephalic and Yes atraumatic Ears: hearing grossly normal bilaterally Eyes General: appearance normal, both eyes and all related structures Neck Neck: Yes normal visual inspection and Yes trachea midline Chest Chest palpation & inspection: normal inspection of the chest Resp Effort & Inspection: normal respiratory effort and able to speak in complete sentences Cardio Rate: regular rate GI Inspection: Yes normal to inspection General: Yes no CVA tenderness Back/Spine/Pelvis Back: no CVA tenderness Skin General skin exam: no rashes or lesions noted Neuro General: patient oriented x3 Extrem General: Yes normal to inspection Psych Appearance: grossly normal and well kempt Mental Status: mental status grossly normal Speech and movement: Normal speech and movement present and Clear speech present Affect: normal affect Attitude: cooperative Thought process: Normal thought process present Thought content: Normal thought content present Insight: Fair insight present (Psych) Judgement: Fair judgement present (Psych) Results AMB Urinalysis, Automated UA Leukoctes 0 Deshawn/uL Last Edit by [employer] Adeola on 10/05/23 09:23 UA Nitrite Negative Last Edit by Mahi Mir on 10/05/23 09:23 UA Urobilinogen 0.2 mg/dL Last Edit by Mahi Mir on 10/05/23 09:23 UA Protein 0 mg/dL Last Edit by [employer] Agatado on 10/05/23 09:23 UA pH 6.0 Last Edit by Mahi Mir on 10/05/23 09:23 UA Blood 10 Jaime/uL Last Edit by [employer] Mir on 10/05/23 09:23 UA Specific [place] 1.005 Last Edit by [employer] Adeola on 10/05/23 09:23 UA Ketone Negative Last Edit by [employer] Mir on 10/05/23 09:23 UA Bilirubin 0 mg/dL Last Edit by [employer] Agatado on 10/05/23 09:23 UA Glucose 0 mg/dL Last Edit by [employer] Agat[employer] on 10/05/23 09:23 Results Reviewed Results Reviewed: Laboratory Last Values Urine pH (Auto) 6.0 10/05/23 09:17 Specific [place] (Auto) 1.005 10/05/23 09:17 Urine Protein (Auto) 0 mg/dL 10/05/23 09:17 Glucose (UA)(Auto) 0 mg/dL 10/05/23 09:17 Urine Ketones (Auto) Negative 10/05/23 09:17 Urine Blood (Auto) 10 Jaime/uL 10/05/23 09:17 Urine Nitrite (Auto) Negative 10/05/23 09:17 Urine Bilirubin (Auto) 0 mg/dL 10/05/23 09:17 Urine Urobilinogen (Auto) 0.2 mg/dL 10/05/23 09:17 Leukocyte Esterase (Auto) 0 Deshawn/uL 10/05/23 09:17 Assessment & Plan Assessment & Plan (1) Urinary frequency: Code(s): R35.0 - Frequency of micturition Category: Medical (2) Microscopic hematuria: Code(s): R31.29 - Other microscopic hematuria Category: Medical Plan In office urinalysis results reviewed with the patient today; as noted above; will send for urine cytology. Discussed at length potential causes of microscopic hematuria as well as microscopic hematuria workup; discussed risks and benefits of further microscopic hematuria workup versus surveillance monitoring. Will obtain retroperitoneal ultrasound for further assessment evaluation. Patient does report urinary frequency however does not find this bothersome at this time. Discussed bladder triggers/irritants. Follow-up in 1-3 months with imaging to be completed prior; or sooner with any issues, concerns, and or questions. Orders: Orders AMB Urinalysis Automated Today Z13.9 - Encounter for screening, unspecified Urine Cytology Today R31.9 - Hematuria, unspecified US retroperitoneal comp Today R31.29 - Other microscopic hematuria, R35.0 - Frequency of micturition Medications: Discontinued gentamicin 0.3% Discontinued Reason: Patient no longer taking 1 drp ophthalmic-Right Q4H 5 mL 0RF ondansetron Discontinued Reason: Patient no longer taking 4 mg PO Q8H PRN 14 tabs 0RF nausea and vomiting azithromycin Discontinued Reason: Patient no longer taking take 500 mg today (day 1), then 250 mg for 4 days (days 2-5) 6 tabs 0RF codeine-guaifenesin 10-100 mg/5 mL (Guaifenesin AC) Discontinued Reason: Patient no longer taking 5 mL PO Q6H PRN 120 mL 0RF cold symptoms Patient Instructions: The patient had an opportunity to ask questions regarding the treatment plan. All questions were answered. Physical exam, labs, and imaging were discussed and reviewed in detail. As well as risks, benefits, and discussion of treatment choices. No major barriers to understanding were identified. The patient expressed understanding and agreement with the above treatment plan. The patient was made aware they should contact our office by phone for worsening of their current condition, the appearance of new symptoms, or with any questions or concerns. Compliance is encouraged with any medications and follow up testing that is ordered. It is a privilege to be allowed the opportunity to participate in? your urological care.? Again, if you have any questions or concerns If you have any questions or concerns please do not hesitate to contact me. The office is [phone]. This note is constructed using voice recognition software. While every effort has been made to ensure accuracy ferruler errors may have been included. Yours sincerely, KAMERON Miller Coding Level of Care Code New Pt Level 3 (20327) Diagnoses Urinary frequency R35.0 Microscopic hematuria R31.29
== END 2023-10-05 09:34 | disposition home or self-care (01) ==
PROVIDERS: PCP Internal Medicine; Visit Provider Nurse Practitioner Family
DX: R35.0 Frequency of micturition (principal); R31.29 Other microscopic hematuria; Z13.9 Encounter for screening, unspecified
CPT/HCPCS: 99203

== ENCOUNTER 2023-10-05 09:06 | Outpatient (REF) | payer MEDICARE, MEDICAID, SELFPAY ==
[2023-10-05 17:21] LABS: Urine Cytology See Pathology rpt
== END 2023-10-05 09:07 | disposition home or self-care (01) ==
LOC: HO.LNP 09:06
PROVIDERS: PCP Internal Medicine; Visit Provider Nurse Practitioner Family
DX: R35.0 Frequency of micturition (principal); R31.29 Other microscopic hematuria
CPT/HCPCS: 81003; 88112; 99202

== ENCOUNTER 2023-12-03 09:49 | Outpatient (REF) | payer MEDICARE, MEDICAID, SELFPAY ==
--- NOTE | ~2023-12-03 | US_ITS ---
EXAMINATION: US RETROPERITONEAL COMPLETE (RENAL) CLINICAL INFORMATION: Other microscopic hematuria. COMPARISON: None available. TECHNIQUE: Real-time imaging of the kidneys and bladder. Limited visualization due to bowel gas. FINDINGS: RIGHT KIDNEY: 10.8 x 4.2 x 4.8 cm (SAG x AP x TRV). No hydronephrosis. No renal calculi. Renal cortical thickness is normal. Limited visualization. . LEFT KIDNEY: 10.0 x 5.2 x 4.8 cm (SAG x AP x TRV). No hydronephrosis. No renal calculi. Renal cortical thickness is normal. Limited visualization. . BLADDER: Well-distended. Bilateral ureteral jets are demonstrated. Prevoid bladder volume is 225 mL. Postvoid bladder volume is 10.1 mL. US/US retroperitoneal comp IMPRESSION: 1. No hydronephrosis. No renal calculi. Renal cortical thickness is normal. Limited visualization. 2. Urinary bladder is suboptimally distended, limiting visualization. Electronically signed by: Wandy Smiley MD 12/09/2023 10:42 AM EDT
== END 2023-12-03 09:50 | disposition home or self-care (01) ==
LOC: HO.US 09:49
PROVIDERS: PCP Internal Medicine; Visit Provider Nurse Practitioner Family
DX: R31.29 Other microscopic hematuria (principal); R35.0 Frequency of micturition
CPT/HCPCS: 76770

== ENCOUNTER 2023-12-28 08:34 | Outpatient (REF) | payer MEDICARE, MEDICAID, SELFPAY ==
[2023-12-28 17:09] LABS: Urine Cytology See Pathology rpt
== END 2023-12-28 08:35 | disposition home or self-care (01) ==
LOC: HO.LAB 08:34
PROVIDERS: PCP Internal Medicine; Visit Provider Nurse Practitioner Family
DX: R31.29 Other microscopic hematuria (principal); R35.0 Frequency of micturition
CPT/HCPCS: 81003; 88112; 99212

== ENCOUNTER 2023-12-28 08:34 | Outpatient (AMB) | payer MEDICARE, MEDICAID, SELFPAY ==
--- NOTE | 2023-12-28 08:42 | A.OFFVIS_ITS ---
Intake Visit Reasons: 2m/US(set) Intake Note: Patient presents today for follow up visit on: Hematuria and ultrasound Results Imaging Completed: 12/03/23 Urology Medications: none Allergies to Antibiotic: none Blood Thinner: none Smoker: never Meeting/Event Planner Required: No Accompanied by: Self / Same As Patient Allergies No Known Allergies Allergy (Verified 12/28/23 09:03) Medication List - Last Reconciled 12/28/23 by KAMERON Miller No Known Home Meds HPI Comments Details: Sameera is a pleasant 53-year-old female patient of Dr. Hess. She has a past medical history arthritis. She presents to the office today for follow-up. Of note, patient was seen approximately 2 months ago as a new patient for microscopic hematuria at which time a retroperitoneal ultrasound was ordered for further assessment evaluation and her urine was sent for a cytology. These results were reviewed with the patient today. Bilateral kidneys with no hydronephrosis or renal calculi. The bladder is well distended. Bladder jets are demonstrated. Pre void bladder volume is proximally 230 mL. Postvoid bladder volume is approximately 10 mL. Urine cytology 10/27 Negative for high-grade urothelial carcinoma. In discussion with the patient today she reports to be doing and feeling well. She reports noting episodes of urinary frequency with increased p.o. intake otherwise she denies any bothersome urinary issues or concerns. She denies urinary urgency, incontinence, nocturia, hematuria, dysuria, foul smelling urine, changes to urinary stream, flank pain, fever, and or chills. She is happy with her current voiding parameters. She denies any history of nicotine dependence and or workplace chemical exposure. In office urinalysis results reviewed with the patient today 1+ microscopic hematuria noted. Discussed at length potential causes of microscopic hematuria. We discussed reasons for blood in the urine may include but are not limited to kidney stones, cancer in the urinary tract, kidney stone disease or inflammatory conditions of the urinary tract. I have discussed workup to include cystoscopy evaluation versus surveillance monitoring. Risks and benefits of these interventions were discussed. She otherwise offers no other issues or concerns at this time. [facility] Medical History Arthritis Surgical History H/O neck surgery Review of Systems Const All systems reviewed & are unremarkable except as noted in HPI and below Physical Exam Const General: cooperative, healthy appearing, comfortable, no acute distress, well d eveloped, alert and awake Orientation/consciousness: patient oriented x3 Limitations: no limitations HEENT Head: Yes normal to inspection, Yes normocephalic and Yes atraumatic Ears: hearing grossly normal bilaterally Eyes General: appearance normal, both eyes and all related structures Neck Neck: Yes normal visual inspection and Yes trachea midline Chest Chest palpation & inspection: normal inspection of the chest Resp Effort & Inspection: normal respiratory effort and able to speak in complete sentences Cardio Rate: regular rate GI Inspection: Yes normal to inspection General: Yes no CVA tenderness Back/Spine/Pelvis Back: no CVA tenderness Skin General skin exam: no rashes or lesions noted Neuro General: patient oriented x3 Extrem General: Yes normal to inspection Psych Appearance: grossly normal and well kempt Mental Status: mental status grossly normal Speech and movement: Normal speech and movement present and Clear speech present Affect: normal affect Attitude: cooperative Thought process: Normal thought process present Thought content: Normal thought content present Insight: Fair insight present (Psych) Judgement: Fair judgement present (Psych) Results AMB Urinalysis, Automated UA Leukoctes 0 Deshawn/uL Last Edit by Mahi Mir on 12/28/23 08:57 UA Nitrite Last Edit by Mahi Mir on 12/28/23 08:57 UA Urobilinogen 0.2 mg/dL Last Edit by Mahi Mir on 12/28/23 08:57 UA Protein 0 mg/dL Last Edit by Mahi Mir on 12/28/23 08:57 UA pH 6.0 Last Edit by Mahi Mir on 12/28/23 08:57 UA Blood 25 Jaime/uL Last Edit by Mahi Mir on 12/28/23 08:57 UA Specific [place] 1.010 Last Edit by Mahi Mir on 12/28/23 08:57 UA Ketone Last Edit by Bienvenidostanislavjasen Yungsanty on 12/28/23 08:57 UA Bilirubin 0 mg/dL Last Edit by Bienvenidostanislavjasen Yungsanty on 12/28/23 08:57 UA Glucose 0 mg/dL Last Edit by Bienvenidosebastian Agasanty on 12/28/23 08:57 Results Reviewed Results Reviewed: Laboratory Last Values Urine pH (Auto) 6.0 12/28/23 08:55 Specific [place] (Auto) 1.010 12/28/23 08:55 Urine Protein (Auto) 0 mg/dL 12/28/23 08:55 Glucose (UA)(Auto) 0 mg/dL 12/28/23 08:55 Urine Blood (Auto) 25 Jaime/uL 12/28/23 08:55 Urine Bilirubin (Auto) 0 mg/dL 12/28/23 08:55 Urine Urobilinogen (Auto) 0.2 mg/dL 12/28/23 08:55 Leukocyte Esterase (Auto) 0 Deshawn/uL 12/28/23 08:55 Date of Service: 12/03/23 EXAMINATION: US RETROPERITONEAL COMPLETE (RENAL) FINDINGS: RIGHT KIDNEY: 10.8 x 4.2 x 4.8 cm (SAG x AP x TRV). No hydronephrosis. No renal calculi. Renal cortical thickness is normal. Limited visualization. . LEFT KIDNEY: 10.0 x 5.2 x 4.8 cm (SAG x AP x TRV). No hydronephrosis. No renal calculi. Renal cortical thickness is normal. Limited visualization. . BLADDER: Well-distended. Bilateral ureteral jets are demonstrated. Prevoid bladder volume is 225 mL. Postvoid bladder volume is 10.1 mL. IMPRESSION: 1. No hydronephrosis. No renal calculi. Renal cortical thickness is normal. Limited visualization. 2. Urinary bladder is suboptimally distended, limiting visualization. Assessment & Plan Assessment & Plan (1) Urinary frequency: Code(s): R35.0 - Frequency of micturition Category: Medical (2) Microscopic hematuria: Code(s): R31.29 - Other microscopic hematuria Category: Medical Plan In office urinalysis results reviewed with the patient today; as noted above; will send for urine cytology. Recent retroperitoneal ultrasound results reviewed with the patient today; as noted above. Discussed at length potential causes of microscopic hematuria as well as further intervention and workup to include in office cystoscopy; risks and benefits of these interventions were discussed. Patient currently denies any bothersome urinary issues or concerns. She reports be happy with current voiding parameters. Discussed surveillance monitoring verses further workup with in office cystoscopy; will continue with surveillance monitoring at this time. Follow-up in 6 months; or sooner with any issues, concerns, and or questions. Orders: Orders AMB Urinalysis Automated Today Z13.9 - Encounter for screening, unspecified Urine Cytology Today R31.29 - Other microscopic hematuria Patient Instructions: The patient had an opportunity to ask questions regarding the treatment plan. All questions were answered. Physical exam, labs, and imaging were discussed and reviewed in detail. As well as risks, benefits, and discussion of treatment choices. No major barriers to understanding were identified. The patient expressed understanding and agreement with the above treatment plan. The patient was made aware they should contact our office by phone for worsening of their current condition, the appearance of new symptoms, or with any questions or concerns. Compliance is encouraged with any medications and follow up testing that is ordered. It is a privilege to be allowed the opportunity to participate in? your urological care.? Again, if you have any questions or concerns If you have any questions or concerns please do not hesitate to contact me. The office is [phone]. This note is constructed using voice recognition software. While every effort has been made to ensure accuracy guard driver errors may have been included. Yours sincerely, KAMERON Miller Coding Level of Care Code Est Pt Level 3 (93780) Diagnoses Urinary frequency R35.0 Microscopic hematuria R31.29
== END 2023-12-28 09:23 | disposition home or self-care (01) ==
PROVIDERS: PCP Internal Medicine; Visit Provider Nurse Practitioner Family
DX: R35.0 Frequency of micturition (principal); R31.29 Other microscopic hematuria; Z13.9 Encounter for screening, unspecified
CPT/HCPCS: 99213

== ENCOUNTER 2024-06-27 08:26 | Outpatient (AMB) | payer MEDICARE, MEDICAID, SELFPAY ==
--- NOTE | 2024-06-27 08:36 | A.OFFVIS_ITS ---
Intake Visit Reasons: 6m follow up Intake Note: Patient presents today for follow up visit on: Hematuria Urology Medications: none Allergies to Antibiotic: none Blood Thinner: none Smoker: never Contact Lens Polisher Required: No Accompanied by: Self / Same As Patient Allergies No Known Allergies Allergy (Verified 06/27/24 09:09) Medication List - Last Reconciled 06/27/24 by KAMERON Miller No Known Home Meds HPI Comments Details: Sameera is a pleasant 53-year-old female patient of Dr. Hess. She has a past medical history arthritis. She presents to the office today for follow-up. She presents to the office today for follow-up of her microscopic hematuria. In discussion with the patient today she reports to be doing and feeling well. She denies having had any bothersome urinary issues or concerns since her last office visit here approximately 6 months ago. Previous workup has included a retroperitoneal ultrasound 11/27 noting bilateral kidneys with no hydronephrosis or renal calculi. The bladder is well distended. Bladder jets are demonstrated. Pre void bladder volume is proximally 230 mL. Postvoid bladder volume is approximately 10 mL. Urine cytology 10/27 and 12/28 Negative for high-grade urothelial carcinoma. She denies urinary frequency, urinary urgency, incontinence, nocturia, hematuria, dysuria, foul smelling urine, changes to urinary stream, flank pain, fever, and or chills. She is happy with her current voiding parameters. She denies any history of nicotine dependence and or workplace chemical exposure. In office urinalysis results reviewed with the patient today trace microscopic hematuria noted. Discussed at length potential causes of microscopic hematuria. We discussed reasons for blood in the urine may include but are not limited to kidney stones, cancer in the urinary tract, kidney stone disease or inflammatory conditions of the urinary tract. I have discussed workup to include cystoscopy evaluation versus surveillance monitoring. Risks and benefits of these interventions were discussed. Information provided. She otherwise offers no other issues or concerns at this time. [facility] Medical History Arthritis Surgical History H/O neck surgery Review of Systems Const All systems reviewed & are unremarkable except as noted in HPI and below Physical Exam Const General: cooperative, healthy appearing, comfortable, no acute distress, well developed, alert and awake Orientation/consciousness: patient oriented x3 Limitations: no limitations HEENT Head: Yes normal to inspection, Yes normocephalic and Yes atraumatic Ears: hearing grossly normal bilaterally Eyes General: appearance normal, both eyes and all related structures Neck Neck: Yes normal visual inspection and Yes trachea midline Chest Chest palpation & inspection: normal inspection of the chest Resp Effort & Inspection: normal respiratory effort and able to speak in complete sentences Cardio Rate: regular rate GI Inspection: Yes normal to inspection General: Yes no CVA tenderness Back/Spine/Pelvis Back: no CVA tenderness Skin General skin exam: no rashes or lesions noted Neuro General: patient oriented x3 Extrem General: Yes normal to inspection Psych Appearance: grossly normal and well kempt Mental Status: mental status grossly normal Speech and movement: Normal speech and movement present and Clear speech present Affect: normal affect Attitude: cooperative Thought process: Normal thought process present Thought content: Normal thought content present Insight: Fair insight present (Psych) Judgement: Fair judgement present (Psych) Results AMB Urinalysis, Automated UA Leukoctes 0 Deshawn/uL Last Edit by Mahi Mir on 06/27/24 08:48 UA Nitrite Last Edit by Mahi Mir on 06/27/24 08:48 UA Urobilinogen 0.2 mg/dL Last Edit by Mahi Mir on 06/27/24 08:48 UA Protein 0 mg/dL Last Edit by Mahi Mir on 06/27/24 08:48 UA pH 7.5 Last Edit by Mahi Mir on 06/27/24 08:48 UA Blood 10 Jaime/uL Last Edit by Mahi Mir on 06/27/24 08:48 UA Specific [place] 1.005 Last Edit by Mahi Mir on 06/27/24 08:48 UA Ketone Last Edit by Mahi Mir on 06/27/24 08:48 UA Bilirubin 0 mg/dL Last Edit by Mahi Mir on 06/27/24 08:48 UA Glucose 0 mg/dL Last Edit by Mahi Mir on 06/27/24 08:48 Results Reviewed Results Reviewed: Laboratory Last Values Urine pH (Auto) 7.5 06/27/24 08:41 Specific [place] (Auto) 1.005 06/27/24 08:41 Urine Protein (Auto) 0 mg/dL 06/27/24 08:41 Glucose (UA)(Auto) 0 mg/dL 06/27/24 08:41 Urine Blood (Auto) 10 Jaime/uL 06/27/24 08:41 Urine Bilirubin (Auto) 0 mg/dL 06/27/24 08:41 Urine Urobilinogen (Auto) 0.2 mg/dL 06/27/24 08:41 Leukocyte Esterase (Auto) 0 Deshawn/uL 06/27/24 08:41 Assessment & Plan Assessment & Plan (1) Microscopic hematuria: Code(s): R31.29 - Other microscopic hematuria Category: Medical Plan In office urinalysis results reviewed with the patient today; as noted above; will send for urine cytology. We discussed potential causes of microscopic hematuria as well as further workup to include in office cystoscopy versus surveillance monitoring; risks and benefits of these interventions were discussed. She currently denies any bothersome urinary issues or concerns. She reports be happy with current voiding parameters. Information provided regarding hematuria as well as in office cystoscopy. All questions were answered. Follow-up in 6 months; or sooner with any issues, concerns, and or questions. Orders: Orders Urine Cytology Today R31.29 - Other microscopic hematuria AMB Urinalysis Automated Today Z13.9 - Encounter for screening, unspecified Patient Instructions: The patient had an opportunity to ask questions regarding the treatment plan. All questions were answered. Physical exam, labs, and imaging were discussed and reviewed in detail. As well as risks, benefits, and discussion of treatment choices. No major barriers to understanding were identified. The patient expressed understanding and agreement with the above treatment plan. The patient was made aware they should contact our office by phone for worsening of their current condition, the appearance of new symptoms, or with any questions or concerns. Compliance is encouraged with any medications and follow up testing that is ordered. It is a privilege to be allowed the opportunity to participate in? your urological care.? Again, if you have any questions or concerns If you have any questions or concerns please do not hesitate to contact me. The office is [phone]. This note is constructed using voice recognition software. While every effort has been made to ensure accuracy stamp pad maker errors may have been included. Yours sincerely, KAMERON Miller Coding Level of Care Code Est Pt Level 3 (63967) Diagnoses Microscopic hematuria R31.29
== END 2024-06-27 09:07 | disposition home or self-care (01) ==
LOC: HO.HUSH 08:27
PROVIDERS: PCP Internal Medicine; Visit Provider Nurse Practitioner Family
DX: Z13.9 Encounter for screening, unspecified (principal); R31.29 Other microscopic hematuria
CPT/HCPCS: 99213

== ENCOUNTER 2024-06-27 08:26 | Outpatient (REF) | payer MEDICARE, MEDICAID, SELFPAY ==
[2024-06-27 17:06] LABS: Urine Cytology See Pathology rpt
== END 2024-06-27 08:27 | disposition home or self-care (01) ==
LOC: HO.LNP 08:26
PROVIDERS: PCP Internal Medicine; Visit Provider Nurse Practitioner Family
DX: R31.29 Other microscopic hematuria (principal)
CPT/HCPCS: 81003; 88112; 99212

== ENCOUNTER 2024-12-28 09:25 | Outpatient (AMB) | payer MEDICARE, MEDICAID, SELFPAY ==
--- NOTE | 2024-12-28 09:27 | MHC.OFFVIS ---
Intake Visit Reasons: 6M follow up Intake Note: Patient is present for 6M F/U Urology Medication:NONE Antibiotic Allergy:NONE Blood Thinner:NONE Weaver Wire Loom Required: No Allergies No Known Allergies Allergy (Verified 12/28/24 09:28) HPI Comments Details: Sameera is a pleasant 54-year-old female patient of Dr. Hess. She has a past medical history arthritis. She presents to the office today for follow-up of her microscopic hematuria. In discussion with the patient today she reports to be doing and feeling well. She denies having had any bothersome urinary issues or concerns since her last office visit here. Previous workup has included a retroperitoneal ultrasound 11/27 noting bilateral kidneys with no hydronephrosis or renal calculi. The bladder is well distended. Bladder jets are demonstrated. Pre void bladder volume is approximately 230 mL. Postvoid bladder volume is approximately 10 mL. Urine cytology 10/27, 12/28 and 06/28 Negative for high-grade urothelial carcinoma. She denies urinary frequency, urinary urgency, incontinence, nocturia, gross/visible hematuria, dysuria, foul smelling urine, changes to urinary stream, flank pain, fever, and or chills. She is happy with her current voiding parameters. She denies any history of nicotine dependence and or workplace chemical exposure. In office urinalysis results reviewed with the patient today trace microscopic hematuria noted. Discussed at length potential causes of microscopic hematuria. We discussed reasons for blood in the urine may include but are not limited to kidney stones, cancer in the urinary tract, kidney stone disease or inflammatory conditions of the urinary tract. I have discussed workup to include cystoscopy evaluation versus surveillance monitoring. Risks and benefits of these interventions were discussed. Information provided. She otherwise offers no other issues or concerns at this time. [facility] Medical History Arthritis Surgical History H/O neck surgery Review of Systems Const All systems reviewed & are unremarkable except as noted in HPI and below Physical Exam Const General: cooperative, healthy appearing, comfortable, no acute distress, well developed, alert and awake Orientation/consciousness: patient oriented x3 Limitations: no limitations HEENT Head: Yes normal to inspection, Yes normocephalic and Yes atraumatic Ears: hearing grossly normal bilaterally Eyes General: appearance normal, both eyes and all related structures Neck Neck: Yes normal visual inspection and Yes trachea midline Chest Chest palpation & inspection: normal inspection of the chest Resp Effort & Inspection: normal respiratory effort and able to speak in complete sentences Cardio Rate: regular rate GI Inspection: Yes normal to inspection General: Yes no CVA tenderness Back/Spine/Pelvis Back: no CVA tenderness Skin General skin exam: no rashes or lesions noted Neuro General: patient oriented x3 Extrem General: Yes normal to inspection Psych Appearance: grossly normal and well kempt Mental Status: mental status grossly normal Speech and movement: Normal speech and movement present and Clear speech present Affect: normal affect Attitude: cooperative Thought process: Normal thought process present Thought content: Normal thought content present Insight: Fair insight present (Psych) Judgement: Fair judgement present (Psych) Results AMB Urinalysis, Automated UA Leukoctes 0 Deshawn/uL Last Edit by KARINA Og on 12/28/24 09:39 UA Nitrite Negative Last Edit by KARINA Og on 12/28/24 09:39 UA Urobilinogen 0.2 mg/dL Last Edit by KARINA Og on 12/28/24 09:39 UA Protein 0 mg/dL Last Edit by KARINA Og on 12/28/24 09:39 UA pH 6.5 Last Edit by KARINA Og on 12/28/24 09:39 UA Blood 10 Jaime/uL Last Edit by KARINA Og on 12/28/24 09:39 UA Specific [place] 1.010 Last Edit by KARINA Og on 12/28/24 09:39 UA Ketone Negative Last Edit by KARINA Og on 12/28/24 09:39 UA Bilirubin 0 mg/dL Last Edit by KARINA Og on 12/28/24 09:39 UA Glucose 0 mg/dL Last Edit by KARINA Og on 12/28/24 09:39 Results Reviewed Results Reviewed: Laboratory Last Values Urine pH (Auto) 6.5 12/28/24 09:38 Specific [place] (Auto) 1.010 12/28/24 09:38 Urine Protein (Auto) 0 mg/dL 12/28/24 09:38 Glucose (UA)(Auto) 0 mg/dL 12/28/24 09:38 Urine Ketones (Auto) Negative 12/28/24 09:38 Urine Blood (Auto) 10 Jaime/uL 12/28/24 09:38 Urine Nitrite (Auto) Negative 12/28/24 09:38 Urine Bilirubin (Auto) 0 mg/dL 12/28/24 09:38 Urine Urobilinogen (Auto) 0.2 mg/dL 12/28/24 09:38 Leukocyte Esterase (Auto) 0 Deshawn/uL 12/28/24 09:38 Assessment & Plan Assessment & Plan (1) Microscopic hematuria: Code(s): R31.29 - Other microscopic hematuria Category: Medical Plan In office urinalysis results reviewed with the patient today; as noted above; will send for urine cytology. We discussed potential causes of microscopic hematuria as well as further workup to include in office cystoscopy versus surveillance monitoring; risks and benefits of these interventions were discussed. She currently denies any bothersome urinary issues or concerns. She reports be happy with current voiding parameters. Will continue with surveillance monitoring at this time All questions were answered. Follow-up in 1 year; or sooner with any issues, concerns, and or questions. Orders: Orders AMB Urinalysis Automated Today Z13.9 - Encounter for screening, unspecified Urine Cytology Today R31.29 - Other microscopic hematuria Patient Instructions: The patient had an opportunity to ask questions regarding the treatment plan. All questions were answered. Physical exam, labs, and imaging were discussed and reviewed in detail. As well as risks, benefits, and discussion of treatment choices. No major barriers to understanding were identified. The patient expressed understanding and agreement with the above treatment plan. The patient was made aware they should contact our office by phone for worsening of their current condition, the appearance of new symptoms, or with any questions or concerns. Compliance is encouraged with any medications and follow up testing that is ordered. It is a privilege to be allowed the opportunity to participate in? your urological care.? Again, if you have any questions or concerns If you have any questions or concerns please do not hesitate to contact me. The office is [phone]. This note is constructed using voice recognition software. While every effort has been made to ensure accuracy sheep clipper errors may have been included. Yours sincerely, Inessa Smith, [employer] Coding Level of Care Code Est Pt Level 3 (92307) Diagnoses Microscopic hematuria R31.29
--- OUTSIDE RECORDS SUMMARY | 2024-12-28 11:14 | XMS_ITS ---
Author Name [facility] Organization Unknown Care Team Organization Name Specialty Phone Email Start Date End Da ester [facility] 02/11/2022 11/23/2023
--- OUTSIDE RECORDS SUMMARY | 2024-12-28 11:14 | XMS_ITS | Clinical Summary ---
Author Organization [address] Address [address] [place] [phone] Phone Care Team Providers Care Application Architect Manager Name Role Phone Lien Hess MD Primary Care Provider [phone] Allergies No known active allergies Medications ftcpwnxduenf-ari-h isrrael-FA-vit K (Adults Multivitamin) 18 mg iron-400 mcg-25 mcg tablet Take by mouth 1 (one) time each day. Active cholecalciferol (VITAMIN D-3) 25 mcg (1,000 unit) tablet Take by mouth. Active acetaminophen (TYLENOL) 500 mg tablet Take 1 Tab by mouth every 6 hours as needed for Pain or Fever for up to 10 days. 07/07/19 20 Active ibuprofen (ADVIL,MOTRIN) 400 mg tablet Take 1-2 Tabs by mouth 3 times daily as needed for Pain for up to 30 days. 06/07/19 20 Active Lactobacillus acidophilus (PROBIOTIC ACIDOPHILUS ORAL) Take by mouth 1 (one) time each day. Active DULoxetine (CYMBALTA) [address] capsuleIndications :Neck pain,Other osteoarthritis of spine, lumbar region,Fibromyalgi a Take 1 capsule (20 mg total) by mouth 1 (one) time each day. Do not crush or chew. 90 each 12/14/19 25 Active cyclobenzaprine (FLEXERIL) 5 mg tabletIndications: Neck pain,Other osteoarthritis of spine, lumbar region,Fibromyalgi a Take 1 tablet (5 mg total) by mouth at bedtime as needed for muscle spasms. 30 tablet 12/14/19 25 Active DULoxetine (CYMBALTA) [address] capsule Take 1 capsule (20 mg total) by mouth 2 (two) times a day. Do not crush or chew. 60 each 1 07/13/19 25 025 Discontinu ed(Reorder ) methylPREDNISolone (MEDROL DOSPAK) 4 mg tabletIndications: Neck pain,Other osteoarthritis of spine, lumbar region,Fibromyalgi a Take as directed on package. 21 tablet 12/14/19 25 025 Active Problems Problem Noted Date Diagnosed Date Hyperlipidemia 08/12/2023 Assessment & Plan (07/12/2024 10:09 AM EDT): Discussed there has been recent improvement. No fam hx of CAD. Will recheck levels in 6 months with further dietary modifications. Orders: Complete blood count; Future Comprehensive metabolic panel; Future Thyroid stimulating hormone; Future Lipid panel with reflex to direct LDL; Future COVID-19 virus infection 07/19/2019 Overview (02/24/2024): 07/24 withhypoxia Stress incontinence 11/18/2012 Fibroadenoma of breast 09/20/2012 Overview (02/24/2024): Right breast bx Fibromyalgia 09/20/2010 Assessment & Plan (07/12/2024 10:09 AM EDT): Will try Cymbalta. SE reviewed. Discussed it takes 4-6 weeks to observe full effect of current dose. She is agreeable. Orders: Complete blood count; Future Comprehensive metabolic panel; Future Thyroid stimulating hormone; Future Lipid panel with reflex to direct LDL; Future Depression 05/17/2010 Overview (02/24/2024): Initially diagnosed 12/07/09, see note Pulmonary nodules 12/20/2009 Overview (02/24/2024): nonspecific finding on cXR ordered by Neurosurger, follow up by plain film recommended by radiology 12/18/09, CXR (-) 01/16/12 Last CXR 2018 Degenerative arthritis of cervical spine 010 Overview (02/24/2024): Surgery 2009 Degenerative arthritis of lumbar spine 0 Helicobacter pylori infection 12/10/2005 Overview (02/24/2024): fully treated 01/04 IMO update Hemorrhage of gastrointestinal tract 12/10/2005 Overview (02/24/2024): lower GIB, colonoscopy (-) 01/20/05 Encounters Date Type Department Care Team Description 12/14/2024 Telephone Adult Medicine [address] [phone] Lien Hess MD 12/13/2024 2:45 PM EDT Office Visit Adult Medicine [address] [phone] Marissa Wolff PA Neck pain (Primary Dx); Other osteoarthritis of spine, lumbar region; Fibromyalgia 12/13/2024 Telephone Adult Medicine [address] [phone] Lien Hess MD from Last 3 Months Immunizations Name Administration Dates Next Due H1N1 Inj Preservative Free 03/22/2009 Influenza Quadravalent, MDCK , 0.5ml, preservative free (Flucelvax) 6mo and older 12/10/2022,04/10/2022,12/20/2020,2019,12/22/2017 Influenza trivalent, 0.5mL, preservative free (Fluarix; FluLaval; Fluzone) ages 6mo and older (Afluria) 3 years and older 04/13/2020,01/29/2016,02/06/2015,2012,12/12/2011,12/20/2010,03/06/2010 Moderna SARS-CoV-2 COVID-19, mRNA, LNP-S, preservative free 04/09/2021 Tdap Tetanus diptheria acell ular pertussis (Boostrix; Adacel) 7yo and older 12/10/2022,03/21/2013,02/22/2008 Surgical History Surgery Date Site/Laterality Comments CERVICAL LAMINECTOMY -2008 PROCEDURE: HISTORICAL CERV LAMINECTOMY BREAST BIOPSY 04/06/2012 Right PROCEDURE: BX BREAST; PERC NEEDLE CORE W/IMAG GUID; COMMENT: rt side neg COLONOSCOPY 12/11/2021 PROCEDURE: HISTORICAL COLONOSCOPY; COMMENT: negative Medical History Medical History Date Comments Helicobacter pylori (H. pylori) 12/10/2005 DX:Helicobacter pylori (H. pylori); COMMENT: fully treated 01/04 Hemorrhage of gastrointestin al tract, unspecified 12/10/2005 DX:Hemorrhage of gastrointes tinal tract, unspecified; COMMENT: lower GIB, colonoscopy (-) 01/20/05 Pulmonary nodules 12/20/2009 DX:Pulmonary n odules Degenerative arthritis of ce rvical spine 09/18/2009 DX:Degenerative arthritis of cervical spine Degenerative arthritis of lumbar spine 09/18/2009 DX:Degenerative arthritis of lumbar spine Depression 05/17/2010 DX:Depression Radiculitis, cervical 09/18/2009 DX:Radicul itis, cervical COVID-19 virus infection 07/19/2019 DX:COVI D-19 virus infection; COMMENT: 07/24 withhypoxia Family History Medical History Relation Name Comments Diabetes Father HTN, a ge 72 Arthritis Mother knee Breast cancer Neg Hx Relation Name Status Comments Father Mother Social History Tobacco Use Types Packs/Day Years Used Date Smoking Tobacco: Never Smokeless Tobacco: Never Tobacco Cessation:Counseling Given: Not Answered Alcohol Use Standard Drinks/Week Comments No 0 (1 standard drink = 0.6 oz pur e alcohol) Comments No Sex and Gender Information Value Date Recorded Sex Assigned at Not on file Legal Sex Female 7:03 AM EST Gender Identity Not on file Sexual Orientation Not on file Obstetrics History Para Term AB IAB SAB Ectopic Multiple Livin g Live Births 4 4 4 4 Date Outcome GA Total Labor Labor/2nd/3rd Weight Sex Type Anes PTL Debbie A1 A5 Name Clin Term Term Term Term Last Filed Vital Signs Vital Sign Reading Time Taken Comments Blood Pressure 128/86 12/13/2024 2:58 PM EDT Pulse 59 12/13/2024 2:32 PM EDT Temperature 36.4 C (97.6 F) 12/13/2024 2:32 PM EDT Respiratory Rate 14 12/13/2024 2:32 PM EDT Oxygen Saturation 98% 07/12/2024 9:05 AM EDT Inhaled Oxygen Concentration - - Weight 57.2 kg (126 lb) 12/13/2024 2:32 PM EDT Height 157.5 cm (5' 2 ) 12/13/2024 2:32 PM EDT Body Mass Index 23.05 12/13/2024 2:32 PM EDT Plan of Treatment Upcoming Encounters Date Type Department Care Team (Late st Contact Info) Description 01/13/2025 9:30 AM EDT Office Visit Adult Medicine [facility] [address] [place] [phone] Lien Hess MD [address] [place] [address] Health Maintenance Due Date Last Done Comments Hepatitis B Vaccines (1 of 3 - 19+ 3-dose series) 1989 Pneumococcal Vaccine: 50+ Years (1 of 2 - PCV) 1989 Zoster Vaccines (1 of 2) 1989 HIV Screening 03/15/2022 Medicare Annual Wellness Visit 03/15/2022 Social Influencers of Health Screening 03/15/2022 Depression Screening 04/06/2024 COVID-19 Vaccine (2024- season) 2024 04/09/2021, 07/23/2020, 06/25/2020 Influenza Vaccine (#1) 2024 3, 04/10/2022, 12/20/2020, Additional history exists Breast Cancer Screening 05/20/2026 05/20/19 25, 05/15/2023, 05/15/2023, Additional history exists Cervical Cancer Screening: HPV 03/20/2027 03/20/2022 Cholesterol Screening (Lipid Panel) 12/15/2029 12/15/2024, 06/22/2024, 04/07/2024, Additional history exists Colorectal Cancer Screening: Colonoscopy 12/14/2031 12/11/2021 DTaP,Tdap,and Td Vaccines (4 - Td or Tdap) 12/10/2032 12/10/2022, 03/21/2013, 02/22/2008 RSV Immunization Adult Patients (1 - 1-dose 75+ series) 2045 Hepatitis A Vaccines Aged Out 02/16/2008 No long er eligible based on patient's age to complete this topic Hepatitis C Screening Completed 05/05/2022 HIB Vaccines Aged Out No longer eligi ble based on patient's age to complete this topic HPV Vaccines Aged Out No longer eligi ble based on patient's age to complete this topic IPV Vaccines Aged Out No longer eligi ble based on patient's age to complete this topic MMR Vaccines Aged Out No longer eligi ble based on patient's age to complete this topic Meningococcal ACWY Vaccine Aged Out N o longer eligible based on patient's age to complete this topic Meningococcal B Vaccine Aged Out No l onger eligible based on patient's age to complete this topic RSV Immunization Patients Under 20 months Aged Out No longer eligible based on patient's age to complete this topic Varicella Vaccines Aged Out No longer eligible based on patient's age to complete this topic Procedures Procedure Name Priority Date/Time Associated Diagnosis Comments COMPLETE BLOOD COUNT Routine 12/15/2024 8:55 AM EDT Fibromyalgia Hyperlipidemia, unspecified hyperlipidemia type COMPREHENSIVE METABOLIC PANEL Routine 12/15/2024 8:55 AM EDT Fibromyalgia Hyperlipidemia, unspecified hyperlipidemia type THYROID STIMULATING HORMONE Routine 12/15/2024 8:55 AM EDT Fibromyalgia Hyperlipidemia, unspecified hyperlipidemia type LIPID PANEL WITH REFLEX TO DIRECT LDL Routine 12/15/2024 8:55 AM EDT Fibromyalgia Hyperlipidemia, unspecified hyperlipidemia type MG MAMMO DIGITAL DIAGNOSTIC W DERIC BILAT Routine 05/20/2024 10:54 AM EST Encounter for screening mammogram for breast cancer Abnormal mammogram of right breast HEPATITIS C SCREENING Routine 05/05/2022 HPV Routine 03/20/2022 COLONOSCOPY Routine 12/11/2021 from Last 3 Months or Most Recently Relevant to Health Maintenance Results * (ABNORMAL) Lipid panel with reflex to direct LDL (12/15/2024 8:55 AM EDT) Cholesterol 213(H) 0 - 200 mg/dL LAB CHEMISTRY METHOD 12/15/2024 1:04 PM EDT [facility] Triglycerides 102 0 - 150 mg/dL LAB CHEMISTRY METHOD 12/15/2024 1:04 PM EDT [facility] HDL 56 >=40 mg/dL LAB CHEMISTRY METHOD 12/15/2024 1:04 PM EDT [facility] LDL Calculated 137(H) 0 - 100 mg/dL LAB CHEMISTRY METHOD 12/15/2024 1:04 PM EDT [facility] Comment:Estimated LDL Calcul ated using equation: Total cholesterol - HDL cholesterol - (Triglycerides/5) VLDL Cholesterol Willis 20.4 mg/dL LAB CHEMISTRY METHOD 12/15/2024 1:04 PM EDT [facility] Non HDL Chol. (LDL+VLDL) 157(H) <145 mg/dL LAB CHEMISTRY METHOD 12/15/2024 1:04 PM EDT [facility] Chol/HDL Ratio 3.8 0.0 - 4.4 LAB CHEMISTRY METHOD 12/15/2024 1:04 PM [facility] Blood Venous blood specimen / Unknown Venipuncture / Unknown 12/15/2024 8:55 AM EDT 12/15/2024 8:55 AM EDT us Dom BARRETT LAB BLOOD ORDERABLES Fin al Result [facility] [address] [place] [address], * (ABNORMAL) Complete blood count (12/15/2024 8:55 AM EDT) WBC 4.8 4.8 - 10.8 K/mcL LAB HEMETOLOGY METHOD 12/15/2024 11:12 AM EDT [facility] RBC 5.10(H) 3.80 - 4.80 M/mcL LAB HEMETOLOGY METHOD 12/15/2024 11:12 AM [facility] Hemoglobin 13.1 11.5 - 16.0 g/dL LAB HEMETOLOGY METHOD 12/15/2024 11:12 AM [facility] Hematocrit 40.7 35.0 - 47.0 % LAB HEMETOLOGY METHOD 12/15/2024 11:12 AM [facility] MCV 80.0 79.0 - 98.0 FL LAB HEMETOLOGY METHOD 12/15/2024 11:12 AM [facility] MCH 25.7(L) 27.0 - 32.0 pcg LAB HEMETOLOGY METHOD 12/15/2024 11:12 AM [facility] MCHC 32.2 32.0 - 37.0 g/dL LAB HEMETOLOGY METHOD 12/15/2024 11:12 AM [facility] RDW 13.9 11.0 - 15.0 % LAB HEMETOLOGY METHOD 12/15/2024 11:12 AM [facility] Platelets 219 130 - 400 K/mcL LAB HEMETOLOGY METHOD 12/15/2024 11:12 AM [facility] MPV 10.0 7.0 - 11.0 FL LAB HEMETOLOGY METHOD 12/15/2024 11:12 AM [facility] NRBC 0.0 <1.0 % LAB HEMETOLOGY METHOD 12/15/2024 11:12 AM [facility] NRBC Absolute 0.00 <0.10 K/mcL LAB HEMETOLOGY METHOD 12/15/2024 11:12 AM [facility] Blood Venous blood specimen / Unknown Venipuncture / Unknown 12/15/2024 8:55 AM EDT 12/15/2024 8:55 AM EDT Dom [facility]RETT LAB BLOOD ORDERABLES Fin al Result Performing Organization Address City/[facility]/ZIP Co de Phone Number [facility] [address] [place] [address], [place] [phone] * Thyroid stimulating hormone (12/15/2024 8:55 AM EDT) Pathologist [facility] TSH 1.15 0.40 - 4.00 mcIU/mL LAB CHEMISTRY METHOD 12/15/2024 1:48 PM EDT [facility] Blood Venous blood specimen / Unknown Venipuncture / Unknown 12/15/2024 8:55 AM EDT 12/15/2024 8:55 AM EDT Dom [facility]RETT LAB BLOOD ORDERABLES Fin al Result Performing Organization Address [facility]/ZIP Co de Phone Number [facility] [address] [place] [address], [place] [phone] * (ABNORMAL) Comprehensive metabolic panel (12/15/2024 8:55 AM EDT) [facility] Sodium 142 133 - 145 mmol/L LAB CHEMISTRY METHOD 12/15/2024 1:18 PM EDT [facility] Potassium 4.5 3.5 - 5.5 mmol/L LAB CHEMISTRY METHOD 12/15/2024 1:18 PM EDT [facility] Chloride 111(H) 96 - 110 mmol/L LAB CHEMISTRY METHOD 12/15/2024 1:18 PM EDT [facility] CO2 30 21 - 32 mmol/L LAB CHEMISTRY METHOD 12/15/2024 1:18 PM EDT [facility] Anion Gap 1(L) 3 - 11 LAB CHEMISTRY METHOD 12/15/2024 1:18 PM EDT [facility] Glucose 85 70 - 100 mg/dL LAB CHEMISTRY METHOD 12/15/2024 1:18 PM EDT [facility] BUN 14 5 - 25 mg/dL LAB CHEMISTRY METHOD 12/15/2024 1:18 PM [facility] Creatinine 0.70 0.50 - 1.10 mg/dL LAB CHEMISTRY METHOD 12/15/2024 1:18 PM [facility] eGFR 103 >=60 mL/min/1. 73m2 LAB CHEMISTRY METHOD 12/15/2024 1:18 PM [facility] Comment:Calculation based on the Chronic Kidney Disease Epidemiology Collaboration (CKD-EPI) equation refit without adjustment for race. BUN/Creatinine Ratio 20.0 LAB CHEMISTRY METHOD 12/15/2024 1:18 PM [facility] Calcium 9.2 8.5 - 10.5 mg/dL LAB CHEMISTRY METHOD 12/15/2024 1:18 PM [facility] AST (SGOT) 33 10 - 42 unit/L LAB CHEMISTRY METHOD 12/15/2024 1:18 PM [facility] ALT (SGPT) 56 10 - 60 unit/L LAB CHEMISTRY METHOD 12/15/2024 1:18 PM [facility] Alkaline Phosphatase 54 42 - 121 unit/L LAB CHEMISTRY METHOD 12/15/2024 1:18 PM [facility] Total Protein 7.0 6.0 - 8.0 g/dL LAB CHEMISTRY METHOD 12/15/2024 1:18 PM [facility] Albumin 4.1 3.2 - 5.0 g/dL LAB CHEMISTRY METHOD 12/15/2024 1:18 PM [facility] Total Bilirubin 0.6 0.0 - 1.4 mg/dL LAB CHEMISTRY METHOD 12/15/2024 1:18 PM [facility] Blood Venous blood specimen / Unknown Venipuncture / Unknown 12/15/2024 8:55 AM EDT 12/15/2024 8:55 AM EDT us Dom BARRETT LAB BLOOD ORDERABLES Fin al Result [facility] [address] [place] [address], * MG Mammo Digital Diagnostic w Deric bilat (05/20/2024 10:54 AM EST) Anatomical Region Laterality Modality Breast Bilateral Mammography 05/20/2024 10:5 5 AM EST Impressions 05/20/2024 11:13 AM EST Benign. Findings and recommendations were conveyed to the patient. BI-RADS CATEGORY: 2 - BENIGN RECOMMENDATION: Return to annual mammography. Return to annual mammography. Return to annual mammography. Return to annual mammography. Mammo Location: [facility], [address] [place] [address], [phone], . -------- FINAL REPORT -------- Dictated By: Diana Doss Dictated Date: 05/20/2024 10:55 ET Assigned Physician: Diana Doss Reviewed and Electronically Signed By: Diana Doss Signed Date: 05/20/2024 11:13 ET Workstation ID: [id number] Transcribed By: Self Edit Transcribed Date: 05/20/2024 10:55 ET Narrative 05/20/2024 11:13 AM EST CLINICAL: 53 years old, Female, one year follow-up right breast calcifications. The patient did not show up for her recommended six-month follow-up right breast mammogram. COMPARISON: Mammograms of 05/05/2022 and 05/13/2023. FINDINGS: MAMMOGRAPHY TECHNIQUE: Bilateral MLO and CC views were obtained digitally with 3-D mammogram (digital breast tomosynthesis). Computer-aided detection was utilized in evaluation of this exam (CAD). Magnification views of the right breast are also obtained and compared to previous magnification views of the right breast of 05/15/2023. There is no evidence of suspicious mass or architectural distortion. Benign nodule with associated biopsy clip in the upper right breast at the 12 o'clock position is again noted. No worrisome calcifications are evident. The microcalcifications seen in the upper outer right breast on the previous study are beginning to coalesce to form a benign coarse calcification. BREAST DENSITY: C - The breasts are heterogeneously dense which may obscure small masses. Procedure Note Diana Doss MD - 05/20/2024 CLINICAL: 53 years old, Female, one year follow-up right breastcalcifications. The patient did not show up for her recommended [id number] right breast mammogram. COMPARISON: Mammograms of 05/05/2022 and 05/13/2023. FINDINGS: MAMMOGRAPHY TECHNIQUE: Bilateral MLO and CC views were obtained digitally with 3-Dmammogram (digital breast tomosynthesis). Computer-aided detection wasutilized in evaluation of this exam (CAD). Magnification views of theright breast are also obtained and compared to previous magnificationviews of the right breast of 05/15/2023. There is no evidence of suspicious mass or architectural distortion.Benign nodule with associated biopsy clip in the upper right breast at the12 o'clock position is again noted. No worrisome calcifications areevident. The microcalcifications seen in the upper outer right breast onthe previous study are beginning to coalesce to form a benign coarsecalcification. BREAST DENSITY: C - The breasts are heterogeneously dense which mayobscure small masses. IMPRESSION: Benign. Findings and recommendations were conveyed to the patient. BI-RADS CATEGORY: 2 - BENIGN RECOMMENDATION: Return to annual mammography. Return to annual mammography. Return toannual mammography. Return to annual mammography. Mammo Location: [facility], [address] [place] [address], [phone], . -------- FINAL REPORT -------- Dictated By: Diana Doss Dictated Date: 05/20/2024 10:55 ET Assigned Physician: Diana Doss Reviewed and Electronically Signed By: Diana Doss Signed Date: 05/20/2024 11:13 ET Workstation ID: [id number] Transcribed By: Self Edit Transcribed Date: 05/20/2024 10:55 ET Lien Hess MD IM BI PROCEDURES Final Result * Hm Hepatitis C Screening (05/05/2022) Hepatitis C Screening abstracted Historical Provider HEALTH MAINTENANCE Final Result * Cervical Cancer Screening: HPV (03/20/2022) Pathologist [facility] Cervical Cancer Screening: HPV negative, abstracted Historical Provider HEALTH MAINTENANCE Final Result * Colonoscopy (12/11/2021) Pathologist [facility] Colonoscopy no interpretation , abstracted Anatomical Region Laterality Modality Other Historical Provider HEALTH MAINTENANCE Final Result from Last 3 Months or Most Recently Relevant to Health Maintenance Insurance MEDICARE MEDICAID - [place] Care Teams Application Architect Manager Relationship Specialty Start Date End Date Lien Hess MD [address] [place] [phone] PCP - General 02/03/1999
--- OUTSIDE RECORDS SUMMARY | 2024-12-28 11:14 | XMS_ITS | Clinical Summary ---
Author Organization [facility] Address [address] [place] [address] Care Team Providers Care Patternmaker Name Role Phone Unavailable Primary Care Provider Unavailabl e Source Comments PLEASE NOTE, if this patient is a minor, it may be UNLAWFUL to discuss sensitive information that is contained in these records (such as FAMILY PLANNING, MENTAL HEALTH or SUBSTANCE ABUSE) with the minor patient's parent or other person without the patient's specific authorization.[facility] Immunizations Immunization Administration Dates Next Due Moderna COVID-19 Vaccine, re d cap blue label, 12+ Primary Series 07/23/2020,06/25/2020 Social History Tobacco Use Types Packs/Day Years Used Date Smoking Tobacco: Never Assessed Social Connections Answer Date Recorded Social Connections and Isolation 0 06/25/2020 Financial Resource Strain Answer Date R ecorded Financial Resource Strain 0 2020 Stress Answer Date Recorded Stress 0 06/25/2020 Physical Activity Answer Date Recorded Physical Activity 0 06/25/2020 Food Insecurity Answer Date Recorded Food 0 06/25/2020 Transportation Needs Answer Date Record ed Transportation 0 06/25/2020 Housing Stability Answer Date Recorded Housing 0 06/25/2020 Safety and Environment Answer Date Jak rded Safety 0 06/25/2020 Utilities Answer Date Recorded Utilities 0 06/25/2020 Employment Answer Date Recorded Employment 0 06/25/2020 Comments Unknown Sex and Gender Information Value Date Recorded Sex Assigned at Not on file Legal Sex Female 10:33 AM PDT Gender Identity Not on file Sexual Orientation Not on file Plan of Treatment Health Maintenance Due Date Last Done Comments Anxiety Screening 1970 Diabetes Screening 1970 HPV Screening 1970 Hepatitis C Screening 1970 Lipid Screening 1970 Pap + HPV 1970 Tobacco Screening 1970 HIV Screening 1985 Hypertension Screening (#1) 1988 Medicare Annual Wellness Visit 1988 Imm-Hepatitis B (1 of 3 - 19 + 3-dose series) 1989 Cervical Cancer Screening 10/07/1991 Pap Smear 10/07/1991 Breast Cancer Screening (Mammogram) 2010 CT Colonography 10/07/2015 Colonoscopy 10/07/2015 Colorectal Cancer Screening 10/07/2015 FIT/gFOBT 10/07/2015 Fecal DNA 10/07/2015 Flexible Sigmoidoscopy 10/07/2015 Imm-Pneumococcal 50+ (1 of 1 - PCV) 2020 Imm-Zoster, Recombinant (1 of 2) 2020 Imm-DTaP/Tdap/Td (3 - Td or Tdap) 03/21/2023 013, 02/22/2008 Alcohol and Drug Screen 04/06/2024 Depression Annual Screen 04/06/2024 [id number] (3 - season) 2024 021, 06/25/2020 Imm-Influenza (#1) 2024 04/13/2020, 0 04/12/2019, 12/22/2017, Additional history exists Cervical Ablation/Cold-Knife Conization Discontinued Cervical Cryotherapy Discontinued Colposcopy Discontinued Endometrial Biopsy Discontinued Excision/Leep Discontinued HPV Genotyping Discontinued Vaginal Pap Discontinued Vulvoscopy Discontinued Insurance MEDICARE - [place] [facility]
== END 2024-12-28 09:55 | disposition home or self-care (01) ==
LOC: HO.HUSH 09:26
PROVIDERS: PCP Internal Medicine; Visit Provider Nurse Practitioner Family
DX: Z13.9 Encounter for screening, unspecified (principal); R31.29 Other microscopic hematuria
CPT/HCPCS: 99213

== ENCOUNTER 2024-12-28 09:25 | Outpatient (REF) | payer MEDICARE, MEDICAID, SELFPAY | END 2024-12-28 09:26 | disposition home or self-care (01) | LOC: HO.LAB 09:25 | PROVIDERS: PCP Internal Medicine; Visit Provider Nurse Practitioner Family | DX: R31.29 Other microscopic hematuria (principal); Z13.89 Encounter for screening for other disorder | CPT/HCPCS: 81003; 88112; 99212 ==

== ENCOUNTER 2025-01-11 12:54 | Outpatient (AMB) | payer MEDICARE, MEDICAID, SELFPAY ==
[2025-01-11 12:57] VITALS: BP 147/67; PULSE 69; RESP 16; O2SAT 99; BMI 23.6
--- NOTE | 2025-01-11 12:57 | MHC.OFFVIS ---
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 He reports that pain in the cervical spine is more severe and aggravates her life more than pain in the lower back. We decided to concentrate on the lower back pain at her next visit now we will concentrate on the cervical spine. As of her pain she can not sleep normally can not do activities of daily living she is able to take care of herself but she can not function normally she is on permanent disability for lower back pain and cervicalgia as well as depression. She reports that heat applications weather changes in movements aggravate her pain and topical medications and oral medications make her pain slightly better. In terms of tissue damage he describes her pain as pinching cramping, crushing, dull, sore, hurting, aching, heavy sensation. She takes Tylenol 500 mg for her pain. She also take methylprednisolone 4 mg every day. She is taking cyclobenzaprine 5 mg as needed. She completed physical therapy for her cervical spine without improvement. She had ACDF of the cervical spine C4 and she reports that this procedure did not alleviate her pain in the neck. She complains on weakness of the left upper extremity awkwardness of the left upper extremity and numbness of the left upper extremity with pain radiating into the left thumb. Last MRI was done 18 years ago. Past medical history significant for arthritis and micro hematuria as well as depression. Surgical history significant for ACDF. She denies smoking cigarettes she denies drinking alcohol she drinks no coffee or caffeinated beverages and she denies recreational drugs. On the referral note of this patient her BUN is 14 and creatinine is 0.7 on 12/15/2024. [facility] Medical History Arthritis Surgical History H/O neck surgery Review of Systems Const All systems reviewed & are unremarkable except as noted in HPI and below ENT Reports Normal hearing present Neuro Reports Normal hearing present, Denies Abnormal speech present, Denies confusion and Denies Sensory deficit (Neuro) Psych Denies confusion Physical Exam Vital Signs: Last Vital Signs Pulse 69 01/11/25 12:57 Resp 16 01/11/25 12:57 BP 147/67 H 01/11/25 12:57 Pulse Ox 99 01/11/25 12:57 Oxygen Delivery Method Room Air 01/11/25 12:57 BMI result Body Mass Index 23.6 Const General: no acute distress; No confusion Orientation/consciousness: patient oriented x3 and No confusion Eyes General: appearance normal, both eyes and all related structures Pupils: Equal, round and reactive pupils present EOM: EOMs intact bilaterally Neck Other: Limited range of motion of the cervical spine. Spurling test is positive on the left. Lhermitte test is negative. There is objective weakness of the left upper extremity. Chest Chest palpation & inspection: normal inspection of the chest Resp Effort & Inspection: normal respiratory effort, able to speak in complete sentences, normal respiratory pattern, no audible wheezes and no cough Cardio Jugular venous distension: no JVD GI Inspection: Yes normal to inspection Neuro General: patient oriented x3, gait normal and No confusion Cranial nerves: Yes CN's II-XII intact bilaterally, Yes Equal, round and reactive pupils present, Yes Normal hearing present and Yes Ability to bilaterally elevate shoulders present Speech: No Abnormal speech present Gait exam (Neuro): Normal gait present Motor exam (neuro): 5/5 motor strength present throughout Sensory Exam: No Sensory deficit (Neuro) Extrem General: No pedal edema Psych Speech and movement: Normal speech and movement present Affect: normal affect Attitude: cooperative Thought process: Normal thought process present Thought content: Normal thought content present Insight: Good insight present (Psych) Judgement: Good judgement present (Psych) Assessment & Plan Assessment & Plan (1) Spondylosis, cervical: Code(s): M47.812 - Spondylosis without myelopathy or radiculopathy, cervical region Category: Medical (2) Radiculopathy, cervical: Code(s): M54.12 - Radiculopathy, cervical region Category: Medical (3) Postlaminectomy syndrome, cervical region: Code(s): M96.1 - Postlaminectomy syndrome, not elsewhere classified Category: Medical (4) Chronic pain syndrome: Code(s): G89.4 - Chronic pain syndrome Category: Medical Plan This patient is suffering from multiple pain generators but because her pain in the neck is most severe I decided to concentrate on cervicalgia. I will send this patient for the MRI of the cervical spine with and without contrast. Her BUN and creatinine recently obtained and the equal to 14 and 0.7. Therefore there is no contraindications for her to have the contrast. She denies allergy to contrast. I instructed the patient to schedule appointment with me the very moment her MRI is completed. Orders: Orders MR cervical spine wo/w con Today G89.4 - Chronic pain syndrome, M47.812 - Spondylosis without myelopathy or radiculopathy, cervical region, M54.12 - Radiculopathy, cervical region, M96.1 - Postlaminectomy syndrome, not elsewhere classified Coding Level of Care Code New Pt Level 3 (46091) Diagnoses Spondylosis, cervical M47.812 Radiculopathy, cervical M54.12 Postlaminectomy syndrome, cervical region M96.1 Chronic pain syndrome G89.4
== END 2025-01-11 13:26 | disposition home or self-care (01) ==
LOC: HO.PMC 12:55
PROVIDERS: PCP Internal Medicine; Visit Provider Anesthesiology
DX: M47.812 Spondylosis without myelopathy or radiculopathy, cervical region (principal); M54.12 Radiculopathy, cervical region; M96.1 Postlaminectomy syndrome, not elsewhere classified; G89.4 Chronic pain syndrome
CPT/HCPCS: 99204

== ENCOUNTER → 2025-01-11 12:54 | Outpatient (BNVA) | payer MEDICARE, MEDICAID, SELFPAY | PROVIDERS: PCP Internal Medicine; Visit Provider Anesthesiology | DX: M47.22 Other spondylosis with radiculopathy, cervical region (principal); M96.1 Postlaminectomy syndrome, not elsewhere classified; G89.4 Chronic pain syndrome | CPT/HCPCS: 99202 ==